=== PATIENT | female | born 1945 | race Caucasian/White ===

== ENCOUNTER 2018-07-16 17:16 | Inpatient (IN) | payer OTHER, MEDICARE ==
[~2018-07-16] VITALS: Ht 152.4 cm; Wt 86.6 kg
[~2018-07-16 17:16] MED LIST: ACET325T9 PO; CALC-112 PO; CARV25TA PO; CITA10TA8 PO; FLUT16SP2 NS; GLUC1CAP57 PO; HYDR-2145 PO; LIPITOR80 MG PO; MULT1CAP15 PO; NAPR220C4 PO; NIAC1000 PO; OMEP20TA8 PO; POTA20TA84 PO; PROP15DR2 OP; RAMI10CA34 PO; TACR100O2 TP; UBID200C7 PO; WARF-78 PO
[2018-07-16] MEDS ORDERED: IV NORMAL SALINE 1000ML BAG 1,000 ML IV ONE (17:30)
[2018-07-16] MEDS ORDERED: fentaNYL PF VIAL 100 MCG/2 ML VIAL IV ONE (17:45)
[2018-07-16 17:50] LABS: BASO # 0.1 x10^3/uL (0.0-0.2); BASO % 1 % (0-3); EOS # 0.2 x10^3/uL (0.0-0.7); EOS % 2 % (0-3); HEMATOCRIT 35.5 % (36.0-47.0); HEMOGLOBIN 11.9 g/dL (12.0-15.5); LYMPH # 2.2 x10^3/uL (1.0-4.8); LYMPH % 25 % (24-48); MEAN CORPUSCULAR HEMOGLOBIN 30 pg (25-35); MEAN CORPUSCULAR HGB CONC 33 g/dL (31-37); MEAN CORPUSCULAR VOLUME 89 fL (79-100); MONO # 0.8 x10^3/uL (0.0-1.1); MONO % 9 % (0-9); NEUT # 5.4 x10^3uL (1.8-7.7); NEUT % 63 % (31-73); PLATELET COUNT 283 x10^3/uL (140-400); RED BLOOD COUNT 3.97 x10^6/uL (3.50-5.40); RED CELL DISTRIBUTION WIDTH 13.2 % (11.5-14.5); WHITE BLOOD COUNT 8.6 x10^3/uL (4.0-11.0)
[2018-07-16 17:56] LABS: CALCIUM 9.4 mg/dL (8.5-10.1); CREATININE 1.1 mg/dL (0.6-1.0); GFR 48.8; POTASSIUM 3.3 mmol/L (3.5-5.1)
[2018-07-16 18:02] LABS: ALBUMIN 3.5 g/dL (3.4-5.0); ALBUMIN/GLOBULIN RATIO 0.9 (1.0-1.7); TOTAL BILIRUBIN 0.3 mg/dL (0.2-1.0); TOTAL PROTEIN 7.2 g/dL (6.4-8.2)
[2018-07-16] MEDS ORDERED: HYDROmorphone 2 MG/ML VIAL IV ONE (18:45)
[2018-07-16] MEDS ORDERED: ONDANSETRON PF 4 MG/2 ML VIAL. IV PRN (18:45)
[2018-07-16] MEDS ORDERED: MORPHINE SULFATE 4 MG/ML VIAL. IV PRN (18:45)
--- NOTE | 2018-07-16 19:02 | RAD ---
Pelvis and right Two View hip: Clinical History: Pain status post fall. Technique: AP view the pelvis AP and frog leg views of the right hip were obtained. Comparison: None. Findings: There is obscuration of bony detail of sacrum due to overlying bowel gas. The visualized osseous structures appear normal. The femoral acetabular relationship is normal. There is gross osteopenia which decreases sensitivity for a possible nondisplaced fracture. Impression: No acute findings. End impression 3 views right knee Portable AP, oblique and crosstable lateral views right knee There is prior right knee total arthroplasty. The femoral and tibial components are well seated. There is a comminuted impacted fracture of the distal femur just above the femoral component with mild posterior angulation and posterior displacement and mild medial displacement. There are fracture lines which enter the lateral femoral condyle. There is a large hemarthrosis. IMPRESSION: Acute medical fracture of the distal femur just above the femoral component with fracture lines entering the lateral femoral condyle. End impression 2 views right ankle: Limited portable 2 view AP and lateral views There is a avulsion from the tip of the lateral malleolus. There is moderate soft tissue swelling over the lateral malleolus. The tibiotalar relationship is normal. IMPRESSION: Avulsion from the tip of the lateral malleolus. See 3 views right knee. End impression Electronically signed by: Freddy Braga III, MD (07/16/2018 6:57 PM) [id number]
[2018-07-16] MEDS: IV NORMAL SALINE 1000ML BAG 1,000 ML IV SCH ×2 (19:12→22:05)
--- NOTE | 2018-07-16 19:19 | PDOC1 ---
History and Physical Date of Admission Date of Admission DATE: 07/16/18 TIME: 19:17 Identification/Chief Complaint Chief Complaint SEEN IN ER , 73 year old female who presents with pain in her right leg primarily above her knee and in her ankle after she fell today. She called EMS and was transported to the ED. She states that she has a history of a knee [place] [address] Amaro. She is unable to bear weight on the extremity and the injury is exquisitely painful. She denies loss of consciousness or other injury. Past Medical History Past Medical History Past Medical History Past Medical History: CAD, GERD, High Cholesterol, Hypertension, Other Additional Past Medical Histor: OSTEOARTHRITIS, SLEEP APNEA,TENDONITIS LEFT ANKLE Past Surgical History: Coronary Bypass Surgery, Hysterectomy, Knee Replacement , Tubal ligation, Other Additional Past Surgical Histo: BILAT ROTATOR CUFF, CARPEL TUNNEL Alcohol Use: Occasionally Drug Use: None family hx htn Cardiovascular: CAD, HTN, Hyperlipidemia GI: GERD Musculoskeletal: Osteoarthritis Past Surgical History Past Surgical History: CABG, Total knee replacement, Hysterectomy Family History Family History: Hypertension Social History Smoke: No ALCOHOL: none Drugs: None Current Medications Current Medications Current Medications Fentanyl Citrate (Fentanyl 2ml Vial) 75 mcg 1X ONCE IV Last administered on at 17:39; Start 07/16/18 at 17:45; Stop 07/16/18 at 17:46; Status DC Sodium Chloride 1,000 ml @ 1,000 mls/hr 1X ONCE IV Last administered on at 17:41; Start 07/16/18 at 17:30; Stop 07/16/18 at 18:29; Status DC Hydromorphone HCl (Dilaudid) 0.5 mg 1X ONCE IV Last administered on 07/16/18at 19:12; Start 07/16/18 at 18:45; Stop 07/16/18 at 18:46; Status DC Ondansetron HCl (Zofran) 4 mg PRN Q8HRS PRN IV NAUSEA/VOMITING; Start 07/16/18 at 18:45; Stop 07/17/18 at 18:44 Morphine Sulfate (Morphine Sulfate) 4 mg PRN Q2HR PRN IV PAIN, 1st CHOICE; Start 07/16/18 at 18:45; Stop 07/17/18 at 18:44 Fentanyl Citrate (Fentanyl 2ml Vial) 50 mcg PRN Q1HR PRN IV PAIN, 2nd CHOICE; Start 07/16/18 at 18:45; Stop 07/17/18 at 18:44 Sodium Chloride 1,000 ml @ 125 mls/hr Q8H IV Last administered on 07/16/18at 19 :12; Start 07/16/18 at 19:00; Stop 07/17/18 at 18:59 Active Scripts Active Reported Coumadin (Warfarin Sodium) 5 Mg Tablet 1 Tab PO 1X Last dose given: Next dose due: Systane Liquid Gel Eye Drops (Propylene Glycol/Peg 400) 15 Ml Drp.lq.gel 15 Ml OP BID Not taken while in hosp. may resume at home as directed Multivitamins (Multivitamin) 1 Each Capsule 1 Each PO DAILY Last dose given: 8:30 a.m. Next dose due: 07-27-14 8:30 a.m. Tylenol (Acetaminophen) 325 Mg Tablet 1 Tab PO PRN PRN Last dose given: 11:30 a.m. Next dose due: 3:30 p.m. if needed for pain do not exceed 4,000 mg. tylenol in 24 hour period Glucosamine Chondroitin Cap (Glucosamine/Chondroitin Sulf A) 1 Each Capsule 1 Each PO DAILY Not taken while in hosp may resume at home as directed Citracal + D Er Tablet (Calcium Carb & Cit/Vitamin D3) 1 Each Tablet.er 1 Each PO DAILY Last dose given: 8:30 a.m. Next dose due: 07-27-14 8:30 a.m. Co Q-10 (Ubidecarenone) 200 Mg Capsule 200 Mg PO DAILY Last dose given: 8:30 a.m. Next dose due: 07-27-14 8:30 a.m. Protopic (Tacrolimus) 100 Gm Oint...g. 1 Shagufta TP BID Not used while in hosp. may resume at home as directed Omeprazole 20 Mg Tablet.dr 1 Tab PO DAILY Last dose given: 7:00 a.m. Next dose due: 07-27-14 7:00 a.m. Hydrochlorothiazide Tablet (Hydrochlorothiazide) 25 Mg Tablet 1 Tab PO DAILY Last dose given: 8:30 a.m. Next dose due: 07-27-14 8:30 a.m. K-Tab ER (Potassium Chloride) 20 Meq Tablet.er 20 Meq PO DAILY Last dose given: 8:30 a.m. Next dose due: 07-27-14 8:30 a.m. Altace (Ramipril) 10 Mg Capsule 1 Cap PO DAILY Last dose given: 07-25-14 5:00 p.m. Next dose due: this evening at 5:00 p.m. Flonase (Fluticasone Propionate) 16 Gm Rosepine.susp 2 Rosepine NS BID Not taken while in hosp. May resume at home as directed Celexa (Citalopram Hydrobromide) 10 Mg Tablet 1 Tab PO HS Last dose given: 07-25-14 9:00 p.m. Next dose due: tonight Niaspan (Niacin) 1,000 Mg Tab.er.24h 1 Tab PO HS Last dose given: 07-25-14 9:00 p.m. Next dose due: tonight Lipitor (Atorvastatin Calcium) 80 Mg Tablet 1 Tab PO HS Last dose given: 07-25-14 9:00 p.m. Next dose due: tonight Coreg (Carvedilol) 25 Mg Tablet 1 Tab PO BID Last dose given: 8:30 a.m. Next dose due: tonight Allergies Allergies: Coded Allergies: celecoxib (Verified Allergy, Severe, Palpitations, 07/25/14) diphenhydramine (Unverified Allergy, Severe, Hives, 07/25/14) adhesive (Verified Allergy, Intermediate, Rash, 07/25/14) latex (Unverified Allergy, Intermediate, Itching, 07/25/14) Nitrate Analogues (Unverified Adverse Reaction, Mild, 07/25/14) SEVERE MIGRAINES Uncoded Allergies: MUSHROOM (Allergy, Severe, Anaphylaxis, 07/08/14) ROS Review of System Review of Systems Review of Systems Constitutional: Denies fever or chills [] Respiratory: Denies cough or shortness of breath [] Cardiovascular: No additional information not addressed in HPI [] GI: Denies abdominal pain, nausea, vomiting, bloody stools or diarrhea [] : Denies dysuria or hematuria [] Musculoskeletal: See history of present illness Integument: Denies rash or skin lesions [] Neurologic: Denies headache, focal weakness or sensory changes [] Endocrine: Denies polyuria or polydipsia [] 14 PT systems were reviewed and found to be within normal limits, except as documented General: No: Chills, Night Sweats, Fatigue, Malaise, Appetite, Other PSYCHOLOGICAL ROS: No: Anxiety, Behavioral Disorder, Concentration difficultie , Decreased libido, Depression, Disorientation, Hallucinations, Hostility, Irritablity, Memory difficulties, Mood Swings, Obsessive thoughts, Physical abuse, Sexual abuse, Sleep disturbances, Suicidal ideation, Other HEENT: No: Heacaches, Visual Changes, Hearing change, Nasal congestion, Nasal discharge, Oral lesions, Sinus pain, Sore Throat, Epistaxis, Sneezing, Snoring, Tinnitus, Vertigo, Vocal changes, Other ALLERGY AND IMMUNOLOGY: No: Hives, Insect Bite Sensitivity, Itchy/Watery Eyes, Nasal Congestion, Post Nasal Drip, Seasonal Allergies, Other Gastrointestinal: No Nausea, No Vomiting, No Abdominal Pain, No Diarrhea, No Constipation, No Melena, No Hematochezia, No Other Musculoskeletal: Yes Gait Disturbance, Yes Joint Pain Neurological: Yes Gait Disturbance Physical Exam Physical Exam Physical Exam Physical Exam Constitutional: Well developed, well nourished, MOD acute distress, non-toxic appearance. [] Cardiovascular:Heart rate regular rhythm, no murmur [] Lungs & Thorax: Bilateral breath sounds clear to auscultation [] Abdomen: Bowel sounds normal, soft, no tenderness, no masses, no pulsatile masses. [] Skin: Warm, dry, no erythema, no rash. [] Back: No tenderness, no CVA tenderness. [] Extremities: tenderness to right knee and ankle, no cyanosis, no clubbing, ROM decreased due to pain and deformity, moderate edema, pulses and sensation are intact distal to injuries. [] Neurologic: Alert and oriented X 3, normal motor function, normal sensory function, no focal deficits noted. [] Psychologic: Affect normal, judgement normal, mood normal. [] General: Oriented X3, Cooperative, moderate distress HEENT: Atraumatic, PERRLA, EOMI, Mucous membr. moist/pink Lungs: Clear to auscultation, Normal air movement Heart: RRR, no thrills, no gallops Breasts: Not examined Abdomen: Normal bowel sounds, Soft Rectal Exam: not examined PELVIC: Examination not indicated Extremities: No cyanosis Neuro: Normal speech, Cranial nerves 3-12 NL Psych/Mental Status: Mental status NL, Mood NL Vitals Vitals Vital Signs Date Time Temp Pulse Resp B/P (MAP) Pulse Ox O2 Delivery O2 Flow Rate FiO2 07/16/18 19:12 16 97 Room Air 07/16/18 17:21 98.2 64 160/74 (102) 98.2 Labs Labs Laboratory Tests Test 07/16/18 17:32 White Blood Count 8.6 x10^3/uL (4.0-11.0) Red Blood Count 3.97 x10^6/uL (3.50-5.40) Hemoglobin 11.9 g/dL (12.0-15.5) Hematocrit 35.5 % (36.0-47.0) Mean Corpuscular Volume 89 fL (79-100) Mean Corpuscular Hemoglobin 30 pg (25-35) Mean Corpuscular Hemoglobin Concent 33 g/dL (31-37) Red Cell Distribution Width 13.2 % (11.5-14.5) Platelet Count 283 x10^3/uL (140-400) Neutrophils (%) (Auto) 63 % (31-73) Lymphocytes (%) (Auto) 25 % (24-48) Monocytes (%) (Auto) 9 % (0-9) Eosinophils (%) (Auto) 2 % (0-3) Basophils (%) (Auto) 1 % (0-3) Neutrophils # (Auto) 5.4 x10^3uL (1.8-7.7) Lymphocytes # (Auto) 2.2 x10^3/uL (1.0-4.8) Monocytes # (Auto) 0.8 x10^3/uL (0.0-1.1) Eosinophils # (Auto) 0.2 x10^3/uL (0.0-0.7) Basophils # (Auto) 0.1 x10^3/uL (0.0-0.2) Sodium Level 132 mmol/L (136-145) Potassium Level 3.3 mmol/L (3.5-5.1) Chloride Level 97 mmol/L (98-107) Carbon Dioxide Level 30 mmol/L (21-32) Anion Gap 5 (6-14) Blood Urea Nitrogen 21 mg/dL (7-20) Creatinine 1.1 mg/dL (0.6-1.0) Estimated GFR (Cockcroft-Gault) 48.8 BUN/Creatinine Ratio 19 (6-20) Glucose Level 166 mg/dL (70-99) Calcium Level 9.4 mg/dL (8.5-10.1) Total Bilirubin 0.3 mg/dL (0.2-1.0) Aspartate Amino Transf (AST/SGOT) 27 U/L (15-37) Alanine Aminotransferase (ALT/SGPT) 46 U/L (14-59) Alkaline Phosphatase 87 U/L (46-116) Total Protein 7.2 g/dL (6.4-8.2) Albumin 3.5 g/dL (3.4-5.0) Albumin/Globulin Ratio 0.9 (1.0-1.7) Laboratory Tests Test 07/16/18 17:32 White Blood Count 8.6 x10^3/uL (4.0-11.0) Red Blood Count 3.97 x10^6/uL (3.50-5.40) Hemoglobin 11.9 g/dL (12.0-15.5) Hematocrit 35.5 % (36.0-47.0) Mean Corpuscular Volume 89 fL (79-100) Mean Corpuscular Hemoglobin 30 pg (25-35) Mean Corpuscular Hemoglobin Concent 33 g/dL (31-37) Red Cell Distribution Width 13.2 % (11.5-14.5) Platelet Count 283 x10^3/uL (140-400) Neutrophils (%) (Auto) 63 % (31-73) Lymphocytes (%) (Auto) 25 % (24-48) Monocytes (%) (Auto) 9 % (0-9) Eosinophils (%) (Auto) 2 % (0-3) Basophils (%) (Auto) 1 % (0-3) Neutrophils # (Auto) 5.4 x10^3uL (1.8-7.7) Lymphocytes # (Auto) 2.2 x10^3/uL (1.0-4.8) Monocytes # (Auto) 0.8 x10^3/uL (0.0-1.1) Eosinophils # (Auto) 0.2 x10^3/uL (0.0-0.7) Basophils # (Auto) 0.1 x10^3/uL (0.0-0.2) Sodium Level 132 mmol/L (136-145) Potassium Level 3.3 mmol/L (3.5-5.1) Chloride Level 97 mmol/L (98-107) Carbon Dioxide Level 30 mmol/L (21-32) Anion Gap 5 (6-14) Blood Urea Nitrogen 21 mg/dL (7-20) Creatinine 1.1 mg/dL (0.6-1.0) Estimated GFR (Cockcroft-Gault) 48.8 BUN/Creatinine Ratio 19 (6-20) Glucose Level 166 mg/dL (70-99) Calcium Level 9.4 mg/dL (8.5-10.1) Total Bilirubin 0.3 mg/dL (0.2-1.0) Aspartate Amino Transf (AST/SGOT) 27 U/L (15-37) Alanine Aminotransferase (ALT/SGPT) 46 U/L (14-59) Alkaline Phosphatase 87 U/L (46-116) Total Protein 7.2 g/dL (6.4-8.2) Albumin 3.5 g/dL (3.4-5.0) Albumin/Globulin Ratio 0.9 (1.0-1.7) Images Images Impression: No acute findings. End impression 3 views right knee Portable AP, oblique and crosstable lateral views right knee There is prior right knee total arthroplasty. The femoral and tibial components are well seated. There is a comminuted impacted fracture of the distal femur just above the femoral component with mild posterior angulation and posterior displacement and mild medial displacement. There are fracture lines which enter the lateral femoral condyle. There is a large hemarthrosis. IMPRESSION: Acute medical fracture of the distal femur just above the femoral component with fracture lines entering the lateral femoral condyle. End impression 2 views right ankle: Limited portable 2 view AP and lateral views There is a avulsion from the tip of the lateral malleolus. There is moderate soft tissue swelling over the lateral malleolus. The tibiotalar relationship is normal. IMPRESSION: Avulsion from the tip of the lateral malleolus. See 3 views right knee. VTE Prophylaxis Ordered VTE Prophylaxis Devices: Yes VTE Pharmacological Prophylaxi: Yes Assessment/Plan Assessment/Plan IMPRESSION: Acute medical fracture of the distal femur just above the femoral component with fracture lines entering the lateral femoral condyle. HX HYPERTENSION HYPERLIPIDEMIA HX GERD CHIARA PLAN ADMIT NPO P MN ORTHO CONSULT PAIN CONTROL IV DVT PROPHYLAXIS BP CONTROL TAMMIE RON MD Jul 16, 2018 19:19
[2018-07-16 19:40] VITALS: BP 142/73
--- NOTE | 2018-07-16 19:47 | PHYS DOC ---
Past Medical History Past Medical History: CAD, GERD, High Cholesterol, Hypertension, Other Additional Past Medical Histor: OSTEOARTHRITIS, SLEEP APNEA,TENDONITIS LEFT ANKLE Past Surgical History: Coronary Bypass Surgery, Hysterectomy, Knee Replacement , Tubal ligation, Other Additional Past Surgical Histo: BILAT ROTATOR CUFF, CARPEL TUNNEL Alcohol Use: Occasionally Drug Use: None Adult General Chief Complaint Chief Complaint: MECHANICAL FALL HPI HPI Patient is a 73 year old female who presents with pain in her right leg primarily above her knee and in her ankle after she fell today. She called EMS and was transported to the ED. She states that she has a history of a knee replacement [place] [address] Amaro. She is unable to bear weight on the extremity and the injury is exquisitely painful. She denies loss of consciousness or other injury. Review of Systems Review of Systems Constitutional: Denies fever or chills [] Respiratory: Denies cough or shortness of breath [] Cardiovascular: No additional information not addressed in HPI [] GI: Denies abdominal pain, nausea, vomiting, bloody stools or diarrhea [] : Denies dysuria or hematuria [] Musculoskeletal: See history of present illness Integument: Denies rash or skin lesions [] Neurologic: Denies headache, focal weakness or sensory changes [] Endocrine: Denies polyuria or polydipsia [] All other systems were reviewed and found to be within normal limits, except as documented in this note. Current Medications Current Medications Current Medications Medications (Trade) Dose Ordered Sig/[facility] Start Time Stop Time Status Last Admin Dose Admin Fentanyl Citrate (Fentanyl 2ml Vial) 75 mcg 1X ONCE 07/16/18 17:45 07/16/18 17:46 DC 07/16/18 17:39 75 MCG Sodium Chloride 1,000 ml @ 1,000 mls/hr 1X ONCE 07/16/18 17:30 07/16/18 18:29 DC 07/16/18 17:41 1,000 MLS/HR Allergies Allergies Allergies Coded Allergies Type Severity Reaction Last Updated Verified celecoxib Allergy Severe Palpitations 07/25/14 Yes diphenhydramine Allergy Severe Hives 07/25/14 No adhesive Allergy Intermediate Rash 07/25/14 Yes latex Allergy Intermediate Itching 07/25/14 No Nitrate Analogues Adverse Reaction Mild 07/25/14 No Physical Exam Physical Exam Constitutional: Well developed, well nourished, no acute distress, non-toxic appearance. [] Cardiovascular:Heart rate regular rhythm, no murmur [] Lungs & Thorax: Bilateral breath sounds clear to auscultation [] Abdomen: Bowel sounds normal, soft, no tenderness, no masses, no pulsatile masses. [] Skin: Warm, dry, no erythema, no rash. [] Back: No tenderness, no CVA tenderness. [] Extremities: tenderness to right knee and ankle, no cyanosis, no clubbing, ROM decreased due to pain and deformity, moderate edema, pulses and sensation are intact distal to injuries. [] Neurologic: Alert and oriented X 3, normal motor function, normal sensory function, no focal deficits noted. [] Psychologic: Affect normal, judgement normal, mood normal. [] Current Patient Data Vital Signs Vital Signs Date Time Temp Pulse Resp B/P (MAP) Pulse Ox O2 Delivery O2 Flow Rate FiO2 07/16/18 18:30 50 16 96 07/16/18 17:39 Room Air 07/16/18 17:21 98.2 160/74 (102) 98.2 Lab Values Laboratory Tests Test 07/16/18 17:32 White Blood Count 8.6 x10^3/uL (4.0-11.0) Red Blood Count 3.97 x10^6/uL (3.50-5.40) Hemoglobin 11.9 g/dL (12.0-15.5) L Hematocrit 35.5 % (36.0-47.0) L Mean Corpuscular Volume 89 fL (79-100) Mean Corpuscular Hemoglobin 30 pg (25-35) Mean Corpuscular Hemoglobin Concent 33 g/dL (31-37) Red Cell Distribution Width 13.2 % (11.5-14.5) Platelet Count 283 x10^3/uL (140-400) Neutrophils (%) (Auto) 63 % (31-73) Lymphocytes (%) (Auto) 25 % (24-48) Monocytes (%) (Auto) 9 % (0-9) Eosinophils (%) (Auto) 2 % (0-3) Basophils (%) (Auto) 1 % (0-3) Neutrophils # (Auto) 5.4 x10^3uL (1.8-7.7) Lymphocytes # (Auto) 2.2 x10^3/uL (1.0-4.8) Monocytes # (Auto) 0.8 x10^3/uL (0.0-1.1) Eosinophils # (Auto) 0.2 x10^3/uL (0.0-0.7) Basophils # (Auto) 0.1 x10^3/uL (0.0-0.2) Sodium Level 132 mmol/L (136-145) L Potassium Level 3.3 mmol/L (3.5-5.1) L Chloride Level 97 mmol/L (98-107) L Carbon Dioxide Level 30 mmol/L (21-32) Anion Gap 5 (6-14) L Blood Urea Nitrogen 21 mg/dL (7-20) H Creatinine 1.1 mg/dL (0.6-1.0) H Estimated GFR (Cockcroft-Gault) 48.8 BUN/Creatinine Ratio 19 (6-20) Glucose Level 166 mg/dL (70-99) H Calcium Level 9.4 mg/dL (8.5-10.1) Total Bilirubin 0.3 mg/dL (0.2-1.0) Aspartate Amino Transferase (AST) 27 U/L (15-37) Alanine Aminotransferase (ALT) 46 U/L (14-59) Alkaline Phosphatase 87 U/L (46-116) Total Protein 7.2 g/dL (6.4-8.2) Albumin 3.5 g/dL (3.4-5.0) Albumin/Globulin Ratio 0.9 (1.0-1.7) L Laboratory Tests 07/16/18 17:32 Laboratory Tests 07/16/18 17:32 EKG EKG [] Radiology/Procedures Radiology/Procedures [] PATIENT: AYDIN BOSS ACCOUNT: [id number] : 1945 LOCATION: [address] [place] [address] AGE: 73 SEX: F EXAM STATUS: ADM IN ORD. PHYSICIAN: KAREL BARAHONA APRN REASON: fall today PROCEDURE: HIP RIGHT 2V WITH PELVIS Pelvis and right Two View hip: Clinical History: Pain status post fall. Technique: AP view the pelvis AP and frog leg views of the right hip were obtained. Comparison: None. Findings: There is obscuration of bony detail of sacrum due to overlying bowel gas. The visualized osseous structures appear normal. The femoral acetabular relationship is normal. There is gross osteopenia which decreases sensitivity for a possible nondisplaced fracture. Impression: No acute findings. End impression 3 views right knee Portable AP, oblique and crosstable lateral views right knee There is prior right knee total arthroplasty. The femoral and tibial components are well seated. There is a comminuted impacted fracture of the distal femur just above the femoral component with mild posterior angulation and posterior displacement and mild medial displacement. There are fracture lines which enter the lateral femoral condyle. There is a large hemarthrosis. IMPRESSION: Acute medical fracture of the distal femur just above the femoral component with fracture lines entering the lateral femoral condyle. End impression 2 views right ankle: Limited portable 2 view AP and lateral views There is a avulsion from the tip of the lateral malleolus. There is moderate soft tissue swelling over the lateral malleolus. The tibiotalar relationship is normal. IMPRESSION: Avulsion from the tip of the lateral malleolus. See 3 views right knee. End impression Electronically signed by: Litzy Alvarez III, MD (07/16/2018 6:57 PM) [id number] DICTATED and SIGNED BY: LITZY ALVAREZ III, MD DATE: 07/16/181852 Course & Med Decision Making Course & Med Decision Making Pertinent Labs and Imaging studies reviewed. (See chart for details) []The patient was given fentanyl and Dilaudid in the emergency department for pain. The patient is being placed in a posterior long leg splint. Dragon Disclaimer Dragon Disclaimer This electronic medical record was generated, in whole or in part, using a voice recognition dictation system. Departure Departure Impression: Primary Impression: Femur fracture Additional Impression: Fractured lateral malleolus Disposition: 09 ADMITTED INPATIENT Admitting Physician: Richie Wells Condition: STABLE Referrals: NIDHI PIERRE MD (PCP) Attending Signature Attending Signature I have reviewed the PA/PHARMACY ANCILLARY's note and plan of care. I was available for consultation as needed during the patient's visit in the emergency department. I agree with the clinical impression, plan, and disposition. Problem Qualifiers KAREL BARAHONA APRN Jul 16, 2018 19:47 LIZANDRO WILCOX DO Jul 17, 2018 05:54
[2018-07-16] MEDS: fentaNYL PF VIAL 100 MCG/2 ML VIAL IV PRN (22:06)
[2018-07-16] MEDS ORDERED: ACETAMINOPHEN 325 MG TABLET. PO PRN (23:00)
[2018-07-16 23:06] VITALS: BP 147/71
[2018-07-17] VITALS (12 sets, daily range): BP systolic 102–171; BP diastolic 48–68
--- NOTE | 2018-07-17 02:05 | NUR ---
Received report from Edith RN, Emergency Department. Patient arrived to unit accompanied by . Patient had green bag with belongings, cell phone without ore charger. Patient currently rating pain at 4/10. Patient orientated to room, call light placed within reach and bed placed in the lowest position and locked. Marcial from Emergency Department arrived on floor to soft cast the leg and also placed mooney. Will continue to monitor the patient.
[2018-07-17] MEDS: fentaNYL PF VIAL 100 MCG/2 ML VIAL IV PRN ×4 (02:44→17:26)
[2018-07-17 03:28] LABS: CREATININE 0.7 mg/dL (0.6-1.0); GFR 82.3; POTASSIUM 3.2 mmol/L (3.5-5.1)
[2018-07-17 04:22] LABS: BASO % 0 % (0-3); EOS % 0 % (0-3); HEMATOCRIT 27.8 % (36.0-47.0); HEMOGLOBIN 9.7 g/dL (12.0-15.5); LYMPH # 1.5 x10^3/uL (1.0-4.8); LYMPH % 13 % (24-48); MEAN CORPUSCULAR HEMOGLOBIN 31 pg (25-35); MEAN CORPUSCULAR HGB CONC 35 g/dL (31-37); MEAN CORPUSCULAR VOLUME 89 fL (79-100); MONO # 0.8 x10^3/uL (0.0-1.1); MONO % 7 % (0-9); NEUT # 9.1 x10^3uL (1.8-7.7); NEUT % 80 % (31-73); PLATELET COUNT 226 x10^3/uL (140-400); RED BLOOD COUNT 3.13 x10^6/uL (3.50-5.40); RED CELL DISTRIBUTION WIDTH 13.1 % (11.5-14.5); WHITE BLOOD COUNT 11.4 x10^3/uL (4.0-11.0)
[2018-07-17] MEDS: IV NORMAL SALINE 1000ML BAG 1,000 ML IV SCH (05:34)
[2018-07-17] MEDS ORDERED: IV RINGERS,LACTATED 1000ML 1,000 ML IV SCH (07:07)
[2018-07-17] MEDS ORDERED: HYDROmorphone 2 MG/ML VIAL IV PRN (07:15)
[2018-07-17] MEDS ORDERED: LIDOCAINE 1% PF 2 ML VIAL. ID PRN (07:15)
[2018-07-17] MEDS ORDERED: fentaNYL PF VIAL 100 MCG/2 ML VIAL IV PRN ×3 (07:15→18:30)
[2018-07-17] MEDS ORDERED: PROCHLORPERAZINE 10 MG/2 ML VIAL. IV PRN (07:15)
[2018-07-17] MEDS ORDERED: MORPHINE SULFATE 4 MG/ML VIAL. IV PRN ×3 (07:15→18:30)
[2018-07-17] MEDS ORDERED: ONDANSETRON PF 4 MG/2 ML VIAL. IV PRN ×2 (07:15→18:30)
[2018-07-17] MEDS: PANTOPRAZOLE 40 MG TABLET.DR. PO SCH (08:51)
[2018-07-17] MEDS: CALCIUM CARB/VIT D3 500/200 TABLET. PO SCH ×2 (08:52→17:25)
[2018-07-17] MEDS: CARVEDILOL 12.5 MG TABLET. PO SCH ×2 (08:52→17:25)
[2018-07-17] MEDS: POTASSIUM CHLORIDE 20 MEQ TABLET.ER. PO SCH ×2 (08:53→21:02)
[2018-07-17] MEDS: FLUTICASONE 50MCG/NASAL SPRAY 16GM BOTTLE. NS SCH ×2 (08:53→21:03)
[2018-07-17] MEDS: MULTIVITAMIN with MINERAL TABLET. PO SCH (08:53)
[2018-07-17] MEDS: POLYVINYL ALCOHOL 1.4% OPHTH SOLUTION 15ML BOTTLE. OU SCH ×2 (08:53→21:03)
[2018-07-17] MEDS ORDERED: [UNRECOGNIZED DRUG - OTHER] PO SCH (09:00)
[2018-07-17] MEDS ORDERED: GLUCOSAMINE PO SCH (09:00)
[2018-07-17] MEDS: LISINOPRIL 20 MG TABLET PO SCH (09:00)
--- NOTE | 2018-07-17 10:40 | NUR ---
SW following for discharge planning. Discussed with RN, pt having surgery today. Pt is from home with . SW will continue to follow.
[2018-07-17] MEDS ORDERED: FAMOTIDINE 20 MG/2 ML VIAL ONE (12:03)
[2018-07-17] MEDS ORDERED: DEXAMETHASONE SOD PHOS 20 MG/5 ML VIAL. ONE (12:03)
[2018-07-17] MEDS ORDERED: ONDANSETRON PF 4 MG/2 ML VIAL. ONE (12:03)
[2018-07-17] MEDS ORDERED: ROCURONIUM 50 MG/5 ML VIAL. ONE (12:03)
[2018-07-17] MEDS ORDERED: SUCCINYLCHOLINE 200 MG/10 ML VIAL. ONE (12:03)
[2018-07-17] MEDS ORDERED: PROPOFOL 20 ML IV ONE (12:03)
[2018-07-17] MEDS ORDERED: LIDOCAINE 2% PF Vial for OR 5 ML VIAL. ONE (12:03)
[2018-07-17] MEDS ORDERED: fentaNYL PF VIAL 100 MCG/2 ML VIAL ONE ×2 (12:04→13:19)
[2018-07-17] MEDS ORDERED: ePHEDrine PF IN SALINE 50 MG/5 ML DISP.SYRIN IV ONE (13:32)
[2018-07-17] MEDS ORDERED: DESFLURANE > 120 MINUTES IH ONE (14:05)
[2018-07-17] MEDS ORDERED: GLYCOPYRROLATE 1 MG/5 ML VIAL. ONE (14:05)
[2018-07-17] MEDS ORDERED: NEOSTIGMINE 10 MG/10 ML VIAL. ONE (14:06)
[2018-07-17] MEDS ORDERED: WARFARIN 7.5 MG TABLET. PO ONE (16:00)
--- NOTE | 2018-07-17 18:19 | PDOC ---
PROGRESS NOTES Chief Complaint Chief Complaint Acute fracture of the distal femur just above the femoral component with fracture lines entering the lateral femoral condyle. surg today ORIF HX HYPERTENSION HYPERLIPIDEMIA HX GERD CHIARA History of Present Illness History of Present Illness surg today bowel regimen PT and OT likely snu Vitals Vitals Vital Signs Date Time Temp Pulse Resp B/P (MAP) Pulse Ox O2 Delivery O2 Flow Rate FiO2 07/17/18 17:57 Room Air 07/17/18 17:25 60 154/62 07/17/18 15:28 98 18 100 1 98.0 Physical Exam General: Oriented X3, Cooperative, No acute distress Heart: Regular rate, No murmurs Lungs: Clear Abdomen: Normal bowel sounds, Soft Extremities: No cyanosis, No edema Skin: No rashes, No breakdown Labs LABS Laboratory Tests Test 07/16/18 22:54 07/17/18 02:45 Nasal Screen MRSA (PCR) Negative (Negative) White Blood Count 11.4 x10^3/uL (4.0-11.0) Red Blood Count 3.13 x10^6/uL (3.50-5.40) Hemoglobin 9.7 g/dL (12.0-15.5) Hematocrit 27.8 % (36.0-47.0) Mean Corpuscular Volume 89 fL (79-100) Mean Corpuscular Hemoglobin 31 pg (25-35) Mean Corpuscular Hemoglobin Concent 35 g/dL (31-37) Red Cell Distribution Width 13.1 % (11.5-14.5) Platelet Count 226 x10^3/uL (140-400) Neutrophils (%) (Auto) 80 % (31-73) Lymphocytes (%) (Auto) 13 % (24-48) Monocytes (%) (Auto) 7 % (0-9) Eosinophils (%) (Auto) 0 % (0-3) Basophils (%) (Auto) 0 % (0-3) Neutrophils # (Auto) 9.1 x10^3uL (1.8-7.7) Lymphocytes # (Auto) 1.5 x10^3/uL (1.0-4.8) Monocytes # (Auto) 0.8 x10^3/uL (0.0-1.1) Eosinophils # (Auto) 0.0 x10^3/uL (0.0-0.7) Basophils # (Auto) 0.0 x10^3/uL (0.0-0.2) Sodium Level 135 mmol/L (136-145) Potassium Level 3.2 mmol/L (3.5-5.1) Chloride Level 103 mmol/L (98-107) Carbon Dioxide Level 28 mmol/L (21-32) Anion Gap 4 (6-14) Blood Urea Nitrogen 17 mg/dL (7-20) Creatinine 0.7 mg/dL (0.6-1.0) Estimated GFR (Cockcroft-Gault) 82.3 Glucose Level 119 mg/dL (70-99) Calcium Level 8.0 mg/dL (8.5-10.1) Review of Systems Review of Systems no n.v.vd Assessment and Plan Assessmemt and Plan Problems Medical Problems: (1) Femur fracture Status: Acute (2) Fractured lateral malleolus Status: Acute Comment Review of Relevant I have reviewed the following items valentina (where applicable) has been applied. Labs Laboratory Tests Test 07/16/18 17:32 07/16/18 22:54 07/17/18 02:45 White Blood Count 8.6 x10^3/uL (4.0-11.0) 11.4 x10^3/uL (4.0-11.0) Red Blood Count 3.97 x10^6/uL (3.50-5.40) 3.13 x10^6/uL (3.50-5.40) Hemoglobin 11.9 g/dL (12.0-15.5) 9.7 g/dL (12.0-15.5) Hematocrit 35.5 % (36.0-47.0) 27.8 % (36.0-47.0) Mean Corpuscular Volume 89 fL (79-100) 89 fL (79-100) Mean Corpuscular Hemoglobin 30 pg (25-35) 31 pg (25-35) Mean Corpuscular Hemoglobin Concent 33 g/dL (31-37) 35 g/dL (31-37) Red Cell Distribution Width 13.2 % (11.5-14.5) 13.1 % (11.5-14.5) Platelet Count 283 x10^3/uL (140-400) 226 x10^3/uL (140-400) Neutrophils (%) (Auto) 63 % (31-73) 80 % (31-73) Lymphocytes (%) (Auto) 25 % (24-48) 13 % (24-48) Monocytes (%) (Auto) 9 % (0-9) 7 % (0-9) Eosinophils (%) (Auto) 2 % (0-3) 0 % (0-3) Basophils (%) (Auto) 1 % (0-3) 0 % (0-3) Neutrophils # (Auto) 5.4 x10^3uL (1.8-7.7) 9.1 x10^3uL (1.8-7.7) Lymphocytes # (Auto) 2.2 x10^3/uL (1.0-4.8) 1.5 x10^3/uL (1.0-4.8) Monocytes # (Auto) 0.8 x10^3/uL (0.0-1.1) 0.8 x10^3/uL (0.0-1.1) Eosinophils # (Auto) 0.2 x10^3/uL (0.0-0.7) 0.0 x10^3/uL (0.0-0.7) Basophils # (Auto) 0.1 x10^3/uL (0.0-0.2) 0.0 x10^3/uL (0.0-0.2) Sodium Level 132 mmol/L (136-145) 135 mmol/L (136-145) Potassium Level 3.3 mmol/L (3.5-5.1) 3.2 mmol/L (3.5-5.1) Chloride Level 97 mmol/L (98-107) 103 mmol/L (98-107) Carbon Dioxide Level 30 mmol/L (21-32) 28 mmol/L (21-32) Anion Gap 5 (6-14) 4 (6-14) Blood Urea Nitrogen 21 mg/dL (7-20) 17 mg/dL (7-20) Creatinine 1.1 mg/dL (0.6-1.0) 0.7 mg/dL (0.6-1.0) Estimated GFR (Cockcroft-Gault) 48.8 82.3 BUN/Creatinine Ratio 19 (6-20) Glucose Level 166 mg/dL (70-99) 119 mg/dL (70-99) Calcium Level 9.4 mg/dL (8.5-10.1) 8.0 mg/dL (8.5-10.1) Total Bilirubin 0.3 mg/dL (0.2-1.0) Aspartate Amino Transf (AST/SGOT) 27 U/L (15-37) Alanine Aminotransferase (ALT/SGPT) 46 U/L (14-59) Alkaline Phosphatase 87 U/L (46-116) Total Protein 7.2 g/dL (6.4-8.2) Albumin 3.5 g/dL (3.4-5.0) Albumin/Globulin Ratio 0.9 (1.0-1.7) Nasal Screen MRSA (PCR) Negative (Negative) Laboratory Tests Test 07/16/18 22:54 07/17/18 02:45 Nasal Screen MRSA (PCR) Negative (Negative) White Blood Count 11.4 x10^3/uL (4.0-11.0) Red Blood Count 3.13 x10^6/uL (3.50-5.40) Hemoglobin 9.7 g/dL (12.0-15.5) Hematocrit 27.8 % (36.0-47.0) Mean Corpuscular Volume 89 fL (79-100) Mean Corpuscular Hemoglobin 31 pg (25-35) Mean Corpuscular Hemoglobin Concent 35 g/dL (31-37) Red Cell Distribution Width 13.1 % (11.5-14.5) Platelet Count 226 x10^3/uL (140-400) Neutrophils (%) (Auto) 80 % (31-73) Lymphocytes (%) (Auto) 13 % (24-48) Monocytes (%) (Auto) 7 % (0-9) Eosinophils (%) (Auto) 0 % (0-3) Basophils (%) (Auto) 0 % (0-3) Neutrophils # (Auto) 9.1 x10^3uL (1.8-7.7) Lymphocytes # (Auto) 1.5 x10^3/uL (1.0-4.8) Monocytes # (Auto) 0.8 x10^3/uL (0.0-1.1) Eosinophils # (Auto) 0.0 x10^3/uL (0.0-0.7) Basophils # (Auto) 0.0 x10^3/uL (0.0-0.2) Sodium Level 135 mmol/L (136-145) Potassium Level 3.2 mmol/L (3.5-5.1) Chloride Level 103 mmol/L (98-107) Carbon Dioxide Level 28 mmol/L (21-32) Anion Gap 4 (6-14) Blood Urea Nitrogen 17 mg/dL (7-20) Creatinine 0.7 mg/dL (0.6-1.0) Estimated GFR (Cockcroft-Gault) 82.3 Glucose Level 119 mg/dL (70-99) Calcium Level 8.0 mg/dL (8.5-10.1) Medications Current Medications Fentanyl Citrate (Fentanyl 2ml Vial) 75 mcg 1X ONCE IV Last administered on at 17:39; Start 07/16/18 at 17:45; Stop 07/16/18 at 17:46; Status DC Sodium Chloride 1,000 ml @ 1,000 mls/hr 1X ONCE IV Last administered on at 17:41; Start 07/16/18 at 17:30; Stop 07/16/18 at 18:29; Status DC Hydromorphone HCl (Dilaudid) 0.5 mg 1X ONCE IV Last administered on 07/16/18at 19:12; Start 07/16/18 at 18:45; Stop 07/16/18 at 18:46; Status DC Ondansetron HCl (Zofran) 4 mg PRN Q8HRS PRN IV NAUSEA/VOMITING; Start 07/16/18 at 18:45; Stop 07/17/18 at 18:44 Morphine Sulfate (Morphine Sulfate) 4 mg PRN Q2HR PRN IV PAIN, 1st CHOICE; Start 07/16/18 at 18:45; Stop 07/17/18 at 18:44 Fentanyl Citrate (Fentanyl 2ml Vial) 50 mcg PRN Q1HR PRN IV PAIN, 2nd CHOICE Last administered on 07/17/18at 17:26; Start 07/16/18 at 18:45; Stop 07/17/18 at 18:44 Sodium Chloride 1,000 ml @ 125 mls/hr Q8H IV Last administered on 07/17/18at 05 :34; Start 07/16/18 at 19:00; Stop 07/17/18 at 18:59 Acetaminophen (Tylenol) 325 mg PRN Q6HRS PRN PO MILD PAIN; Start 07/16/18 at 23 :00 Citalopram Hydrobromide (CeleXA) 10 mg HS PO ; Start 07/17/18 at 21:00 Fluticasone Propionate (Flonase) 2 spray BID NS Last administered on 07/17/18at 08:53; Start 07/17/18 at 09:00 Atorvastatin Calcium (Lipitor) 80 mg QHS PO ; Start 07/17/18 at 21:00 Calcium/Vitamin D (Oscal D 500mg/ 200uts) 1 tab BIDWMEALS PO Last administered on 07/17/18at 17:25; Start 07/17/18 at 08:00 Carvedilol (Coreg) 25 mg BIDWMEALS PO Last administered on 07/17/18at 17:25; Start 07/17/18 at 08:00 Non-Formulary Medication (Glucosamine/ Chondroitin Sulf A (Glucosamine Chondroitin Cap)) 1 each BID PO ; Start 07/17/18 at 09:00; Status UNV Multivitamins (Thera M Plus) 1 tab DAILY PO Last administered on 07/17/18at 08: 53; Start 07/17/18 at 09:00 Niacin (Slo-Niacin) 1,000 mg HS PO ; Start 07/17/18 at 21:00 Pantoprazole Sodium (Protonix) 40 mg DAILYAC PO Last administered on 07/17/18at 08:51; Start 07/17/18 at 07:30 Potassium Chloride (Klor-Con) 20 meq BID PO Last administered on 07/17/18at 08: 53; Start 07/17/18 at 09:00 Artificial Tears (Artificial Tears) 1 drop BID OU Last administered on at 08:53; Start 07/17/18 at 09:00 Lisinopril (Prinivil) 20 mg DAILY PO ; Start 07/17/18 at 09:00 Ondansetron HCl (Zofran) 4 mg PRN Q6HRS PRN IV NAUSEA/VOMITING; Start 07/17/18 at 07:15; Stop 07/18/18 at 07:14 Fentanyl Citrate (Fentanyl 2ml Vial) 25 mcg PRN Q5MIN PRN IV MILD PAIN Last administered on 07/17/18at 15:22; Start 07/17/18 at 07:15; Stop 07/18/18 at 07:14 Fentanyl Citrate (Fentanyl 2ml Vial) 50 mcg PRN Q5MIN PRN IV MODERATE TO SEVERE PAIN; Start 07/17/18 at 07:15; Stop 07/18/18 at 07:14 Morphine Sulfate (Morphine Sulfate) 1 mg PRN Q10MIN PRN IV SEVERE PAIN; Start 07/17/18 at 07:15; Stop 07/18/18 at 07:14 Ringer's Solution 1,000 ml @ 30 mls/hr Q24H IV ; Start 07/17/18 at 07:07; Stop 07/17/18 at 19:06 Lidocaine HCl (Xylocaine-Mpf 1% 2ml Vial) 2 ml 1X PRN PRN ID IV START; Start at 07:15; Stop 07/18/18 at 07:14 Hydromorphone HCl (Dilaudid) 0.5 mg PRN Q10MIN PRN IV SEV PAIN, Second choice; Start 07/17/18 at 07:15; Stop 07/18/18 at 07:14 Prochlorperazine Edisylate (Compazine) 5 mg PACU PRN PRN IV NAUSEA, MRX1; Start 07/17/18 at 07:15; Stop 07/18/18 at 07:14 Propofol 20 ml @ As Directed STK-MED ONCE IV ; Start 07/17/18 at 12:03; Stop at 12:05; Status DC Dexamethasone Sodium Phosphate (Decadron) 20 mg STK-MED ONCE .ROUTE ; Start at 12:03; Stop 07/17/18 at 12:05; Status DC Famotidine (Pepcid Vial) 20 mg STK-MED ONCE .ROUTE ; Start 07/17/18 at 12:03; Stop 07/17/18 at 12:05; Status DC Lidocaine HCl (Lidocaine Pf 2% Vial) 5 ml STK-MED ONCE .ROUTE ; Start 07/17/18 at 12:03; Stop 07/17/18 at 12:05; Status DC Ondansetron HCl (Zofran) 4 mg STK-MED ONCE .ROUTE ; Start 07/17/18 at 12:03; Stop 07/17/18 at 12:05; Status DC Succinylcholine Chloride (Anectine) 200 mg STK-MED ONCE .ROUTE ; Start 07/17/18 at 12:03; Stop 07/17/18 at 12:06; Status DC Rocuronium [place] (Zemuron) 50 mg STK-MED ONCE .ROUTE ; Start 07/17/18 at 12:03 ; Stop 07/17/18 at 12:06; Status DC Fentanyl Citrate (Fentanyl 2ml Vial) 100 mcg STK-MED ONCE .ROUTE ; Start at 12:04; Stop 07/17/18 at 12:06; Status DC Cefazolin Sodium/ Dextrose 50 ml @ As Directed STK-MED ONCE IV ; Start 07/17/18 at 12:26; Stop 07/17/18 at 12:28; Status DC Fentanyl Citrate (Fentanyl 2ml Vial) 100 mcg STK-MED ONCE .ROUTE ; Start at 13:19; Stop 07/17/18 at 13:21; Status DC Ephedrine Sulfate (ePHEDrine PF IN SALINE SYRINGE) 50 mg STK-MED ONCE IV ; Start 07/17/18 at 13:32; Stop 07/17/18 at 13:34; Status DC Desflurane (Suprane) 90 ml STK-MED ONCE IH ; Start 07/17/18 at 14:05; Stop 07/17 at 14:07; Status DC Glycopyrrolate (Robinul) 1 mg STK-MED ONCE .ROUTE ; Start 07/17/18 at 14:05; Stop 07/17/18 at 14:07; Status DC Neostigmine Methylsulfate (Bloxiverz) 10 mg STK-MED ONCE .ROUTE ; Start at 14:06; Stop 07/17/18 at 14:07; Status DC Active Scripts Active Reported Systane Liquid Gel Eye Drops (Propylene Glycol/Peg 400) 15 Ml Drp.lq.gel 15 Ml OP BID Not taken while in hosp. may resume at home as directed Multivitamins (Multivitamin) 1 Each Capsule 1 Each PO DAILY Last dose given: 8:30 a.m. Next dose due: 07-27-14 8:30 a.m. Tylenol (Acetaminophen) 325 Mg Tablet 1 Tab PO PRN PRN Last dose given: 11:30 a.m. Next dose due: 3:30 p.m. if needed for pain do not exceed 4,000 mg. tylenol in 24 hour period Glucosamine Chondroitin Cap (Glucosamine/Chondroitin Sulf A) 1 Each Capsule 1 Each PO BID Not taken while in hosp may resume at home as directed Citracal + D Er Tablet (Calcium Carb & Cit/Vitamin D3) 1 Each Tablet.er 1 Each PO BID Last dose given: 8:30 a.m. Next dose due: 07-27-14 8:30 a.m. Co Q-10 (Ubidecarenone) 200 Mg Capsule 200 Mg PO DAILY Last dose given: 8:30 a.m. Next dose due: 07-27-14 8:30 a.m. Omeprazole 20 Mg Tablet.dr 1 Tab PO DAILY Last dose given: 7:00 a.m. Next dose due: 07-27-14 7:00 a.m. K-Tab ER (Potassium Chloride) 20 Meq Tablet.er 20 Meq PO BID Last dose given: 8:30 a.m. Next dose due: 07-27-14 8:30 a.m. Altace (Ramipril) 10 Mg Capsule 1 Cap PO DAILY Last dose given: 07-25-14 5:00 p.m. Next dose due: this evening at 5:00 p.m. Flonase (Fluticasone Propionate) 16 Gm [place].susp 2 [place] NS BID Not taken while in hosp. May resume at home as directed Celexa (Citalopram Hydrobromide) 10 Mg Tablet 1 Tab PO HS Last dose given: 07-25-14 9:00 p.m. Next dose due: tonight Niaspan (Niacin) 1,000 Mg Tab.er.24h 1 Tab PO HS Last dose given: 07-25-14 9:00 p.m. Next dose due: tonight Lipitor (Atorvastatin Calcium) 80 Mg Tablet 1 Tab PO HS Last dose given: 07-25-14 9:00 p.m. Next dose due: tonight Coreg (Carvedilol) 25 Mg Tablet 1 Tab PO BID Last dose given: 8:30 a.m. Next dose due: tonight Vitals/I & O Vital Sign - Last 24 Hours 07/16/18 07/16/18 07/16/18 07/16/18 18:30 19:12 19:30 19:40 Temp 99.5 99.5 Pulse 50 50 69 Resp 16 16 17 18 B/P (MAP) 142/73 (96) Pulse Ox 96 97 97 98 O2 Delivery Room Air Room Air 07/16/18 07/16/18 07/16/18 07/17/18 22:06 23:06 23:46 02:44 Temp 98.4 98.4 Pulse 73 Resp 16 B/P (MAP) 147/71 (96) Pulse Ox 98 96 96 O2 Delivery Room Air Room Air Room Air Room Air 07/17/18 07/17/18 07/17/18 07/17/18 02:59 05:30 06:00 07:00 Temp 98.6 98.3 98.6 98.3 Pulse 80 73 Resp 16 16 B/P (MAP) 155/62 (93) 153/65 (94) Pulse Ox 95 95 95 98 O2 Delivery Room Air Room Air Room Air 07/17/18 07/17/18 07/17/18 07/17/18 08:00 08:52 08:56 11:00 Temp 98.1 98.1 Pulse 73 65 Resp 16 B/P (MAP) 153/65 171/59 (96) Pulse Ox 99 O2 Delivery Room Air Room Air Room Air 07/17/18 07/17/18 07/17/18 07/17/18 11:15 14:43 14:56 14:58 Temp 98.1 99.3 98.1 99.3 Pulse 75 68 64 Resp 17 B/P (MAP) 197/81 106/31 129/43 Pulse Ox 96 100 100 O2 Delivery Room Air Simple Mask Mask Simple Mask O2 Flow Rate 9 9 6 07/17/18 07/17/18 07/17/18 07/17/18 15:13 15:22 15:28 15:52 Temp 98 98.0 Pulse 61 60 Resp 19 12 18 B/P (MAP) 139/59 154/62 Pulse Ox 96 96 100 O2 Delivery Nasal Cannula Nasal Cannula Nasal Cannula Room Air O2 Flow Rate 1 1.0 1 07/17/18 07/17/18 07/17/18 17:25 17:26 17:57 Pulse 60 B/P (MAP) 154/62 O2 Delivery Room Air Room Air Intake and Output 07/16/18 07/16/1807/17/19 15:01 23:01 07:01 Intake Total 1000 ml 60 ml Output Total 1250 ml Balance 1000 ml -1190 ml JOYA LINDSAY MD Jul 17, 2018 18:19
--- NOTE | 2018-07-17 18:22 | PDOC4 ---
Operative Note Operative Note Date of surgery: 07/17/2018 Preoperative diagnosis: Displaced periprosthetic distal femur fracture above well fixed total knee arthroplasty Postoperative diagnosis: Same Operative procedure: Operative reduction internal fixation left periprosthetic distal femur fracture with locking plate and screw fixation Surgeon: Afsaneh Assist: Radha Anesthesia: Gen. Estimated blood loss: 200 mL Complications: None Operative indications: Please see my consultation note dated today for detailed documentation of her periprosthetic distal femur fracture that occurred in a fall last evening. She underwent medical evaluation and I gone over with her risks benefits postoperative course as detailed in my preoperative consultation covering with her the possibility of infection nonhealing extended period of nonweightbearing required. All her questions were answered she wishes to proceed with surgical evaluation and treatment Operative text: Patient was identified procedure verified patient placed in the supine position on the operating table. After adequate amounts of general anesthesia were administered the right lower extremity was prepped and draped in standard sterile fashion. After timeout was performed patient procedure identified and verified and incision was made over the lateral aspect of the distal femur iliotibial band was divided in line and subperiosteal dissection was carried out to the distal femur and fracture site. Fracture was provisionally reduced and a 9 hole [place]ad[place] distal femoral locking plate was placed on the minimally invasive jig and a para-articular reduction forcep was placed over the plate to obtain near anatomic reduction of the fracture site good alignment of the total knee prosthesis was noted and a nonlocking screw was placed through the femoral condyles initially. Shaft fixation was then obtained and subsequent combination of locking and nonlocking screws was placed in the distal holes with excellent fixation noted under AP and lateral fluoroscopic views. Shaft fixation was then carried out percutaneously through additional small stab incisions and excellent alignment was noted under multiple fluoroscopic views verifying adequate hardware placement. Knee joint itself was noted to be stable and had good patellofemoral tracking thorough irrigation carried out normal saline solution closure accomplished with #1 PDS strata fix suture subcutaneous closure with buried Vicryl suture and skin closure with emily sterile soft dressings were applied patient was returned recovery room in stable condition having tolerated procedure well ZAK CASTRO MD Jul 17, 2018 18:22
[2018-07-17] MEDS ORDERED: DEXTROSE 50% 25 GM / 50ML DISP.SYRIN. IV PRN (18:30)
[2018-07-17] MEDS ORDERED: oxyCODONE IR 5 MG TABLET PO PRN (18:30)
[2018-07-17] MEDS ORDERED: HYDROcodone/APAP 7.5/325MG 1 TAB TABLET PO PRN (18:30)
[2018-07-17] MEDS ORDERED: POLYETHYLENE GLYCOL 3350 17 GM PACKET. PO PRN (18:30)
[2018-07-17 19:12] LABS: PROTHROMBIN TIME PATIENT 15.1 SEC (11.7-14.0)
[2018-07-17] MEDS ORDERED: WARFARIN 5 MG TABLET. PO ONE (19:21)
[2018-07-17] MEDS ORDERED: NIACIN ER 500 MG TABLET.ER PO ONE (21:00)
[2018-07-17] MEDS: NIACIN ER 500 MG TABLET.ER PO SCH (21:02)
[2018-07-17] MEDS: ATORVASTATIN CALCIUM 40 MG TABLET. PO SCH (21:02)
[2018-07-17] MEDS: CITALOPRAM 10 MG TABLET. PO SCH (21:03)
--- NOTE | 2018-07-17 21:30 | CONS ---
DATE OF CONSULTATION: 07/17/2018 REQUESTING PHYSICIAN: Dr. Mcdermott. REASON FOR CONSULTATION: Right periprosthetic distal femur fracture. HISTORY OF PRESENT ILLNESS: The patient is a 73-year-old female who had a total knee arthroplasty back [place] [address] Amaro, who had the sudden onset of pain, inability to bear weight after a fall where she landed on her right leg, had deformity around the knee, pain around the ankle as well and now complains of a bit of pain in the right hip area also. She has severe pain with any movement of the right lower extremity. She denies any head injury, loss of consciousness, chest pain, shortness of breath. She does have a history of heart bypass surgery many years ago and no symptoms since. PAST MEDICAL HISTORY: Significant for heart disease, reflux, hypertension, hypercholesterolemia, arthritis, sleep apnea and some recent tendinitis of her left ankle. PAST SURGICAL HISTORY: Previous coronary bypass surgery, I think, about 18 years ago, hysterectomy, right total knee arthroplasty, tubal ligation, rotator cuff surgery bilaterally as well as carpal tunnel surgery. FAMILY HISTORY: Hypertension. SOCIAL HISTORY: Denies smoking, alcohol or drug use. Previously independently ambulatory, lives with her who is present with her today. MEDICATIONS: List is reviewed. ALLERGIES: INCLUDE CELEBREX, BENADRYL AND ANY TYPE OF ADHESIVE TAPE AND NITRATES WELL FOOD ALLERGY TO MUSHROOMS. REVIEW OF SYSTEMS: Again, denies any chest pain, shortness of breath, focal weakness, numbness, tingling. Severe pain on any right lower extremity movement, pain over the knee and ankle more so than the right hip. She denies any headache, visual changes, change in bowel or bladder function, neck or back pain or other joint pain. PHYSICAL EXAMINATION: GENERAL: A pleasant, cooperative 73-year-old female, alert and oriented, in no acute distress. EXTREMITIES: Examination of lower extremities, she is tender over the tip of her distal fibula. Ankle joint is stable. She is able to wiggle up and down. She is stable to drawer testing. Knee joint has obvious deformity and gross instability with pain on any movement. No tenderness on palpation over the hip itself or over the trochanteric bursa. Normal examination of the contralateral left hip, knee and ankle. She has good range of motion and stability of bilateral shoulder, elbow and wrist as well. She has well-healed incision from previous right total knee arthroplasty. IMAGING: X-rays show a periprosthetic distal femur fracture that is comminuted and displaced. The total knee arthroplasty seems to have good fixation. X-rays of the right ankle show slight ligamentous avulsion, tiny fragment from the distal fibula, indicative of an ankle sprain. Right hip films are negative for any fracture or bony abnormality. IMPRESSION: 1. Right knee periprosthetic femur fracture. 2. Right ankle sprain with distal fibular small avulsion fragment. TREATMENT PLAN: I told her that the knee would require fixation of distal femur plate and screws. This would likely require an extended period of nonweightbearing, probably about 2 months depending on healing. She can use the knee and keep it limber for motion in the interim. We would also treat the right ankle avulsion fracture as an ankle sprain as that is the primary mode of injury. We went over risks, benefits, postoperative course of surgery including bleeding, infection, nerve or blood vessel damage, nonhealing, continued pain, medical or other anesthetic complications among others. She wishes to proceed with surgical evaluation and treatment, which will occur today. ZAK CASTRO MD DR: RADAMES/margot JOB#: [id number] / [id number]
[2018-07-17 22:50] LABS: BILIRUBIN,URINE NEGATIVE (NEG); CLARITY,URINE CLEAR; COLOR,URINE YELLOW; NITRITE,URINE NEGATIVE (NEG); PROTEIN,URINE NEGATIVE (NEG-TRACE); UROBILINOGEN,URINE 0.2 mg/dL (0.2 mg/dL)
[2018-07-17 22:55] LABS: BACTERIA,URINE 0 /HPF (0-FEW); SQUAMOUS EPITHELIAL CELL,UR FEW /LPF
[2018-07-18 03:00] VITALS: BP 133/61
[2018-07-18] MEDS: HYDROcodone/APAP 7.5/325MG 1 TAB TABLET PO PRN ×3 (03:34→21:11)
[2018-07-18] MEDS ORDERED: MAGNESIUM HYDROXIDE 2,400 MG/30 ML ORAL.SUSP. PO PRN (06:00)
[2018-07-18] MEDS: PANTOPRAZOLE 40 MG TABLET.DR. PO SCH (06:22)
[2018-07-18 07:00] VITALS: BP 115/47
[2018-07-18] MEDS: CALCIUM CARB/VIT D3 500/200 TABLET. PO SCH ×2 (08:02→17:17)
[2018-07-18 08:23] LABS: HEMATOCRIT 23.1 % (36.0-47.0)
[2018-07-18] MEDS: DOCUSATE SODIUM 100 MG CAPSULE. PO SCH (09:00)
[2018-07-18] MEDS: POLYETHYLENE GLYCOL 3350 17 GM PACKET. PO SCH (09:00)
[2018-07-18] MEDS: LISINOPRIL 20 MG TABLET PO SCH (09:00)
[2018-07-18] MEDS: POTASSIUM CHLORIDE 20 MEQ TABLET.ER. PO SCH ×2 (09:16→21:08)
[2018-07-18] MEDS: SENNOSIDES/DOCUSATE 8.6/50MG TABLET. PO SCH (09:16)
[2018-07-18] MEDS: CARVEDILOL 12.5 MG TABLET. PO SCH ×2 (09:17→17:16)
[2018-07-18] MEDS: MULTIVITAMIN with MINERAL TABLET. PO SCH (09:17)
[2018-07-18 11:00] VITALS: BP 115/46
--- NOTE | 2018-07-18 11:46 | PDOC ---
PROGRESS NOTES Chief Complaint Chief Complaint Acute fracture of the distal femur just above the femoral component with fracture lines entering the lateral femoral condyle. surg today ORIF HX HYPERTENSION HYPERLIPIDEMIA HX GERD CHIARA History of Present Illness History of Present Illness POD 1 doing well, up to chair with some difficulty, would like to DC to SNU to Deputy bowel regimen PT and OT likely snu Vitals Vitals Vital Signs Date Time Temp Pulse Resp B/P (MAP) Pulse Ox O2 Delivery O2 Flow Rate FiO2 07/18/18 11:00 98.9 66 18 115/46 (69) 98 Room Air 98.9 07/18/18 04:34 1.0 Physical Exam General: Oriented X3, Cooperative, No acute distress Heart: Regular rate, No murmurs Lungs: Clear Abdomen: Normal bowel sounds, Soft Extremities: No cyanosis, No edema Skin: No rashes, No breakdown Labs LABS Laboratory Tests Test 07/17/18 18:55 07/17/18 22:40 07/18/18 07:00 Prothrombin Time 15.1 SEC (11.7-14.0) Prothromb Time International Ratio 1.2 (0.8-1.1) Urine Collection Type Unknown Urine Color Yellow Urine Clarity Clear Urine pH 6.0 Urine Specific [place] 1.015 Urine Protein Negative mg/dL (NEG-TRACE) Urine Glucose (UA) Negative mg/dL (NEG) Urine Ketones (Stick) Negative mg/dL (NEG) Urine Blood Negative (NEG) Urine Nitrite Negative (NEG) Urine Bilirubin Negative (NEG) Urine Urobilinogen Dipstick 0.2 mg/dL (0.2 mg/dL) Urine Leukocyte Esterase Negative (NEG) Urine RBC 1-2 /HPF (0-2) Urine WBC 1-4 /HPF (0-4) Urine Squamous Epithelial Cells Few /LPF Urine Bacteria 0 /HPF (0-FEW) Urine Mucus Slight /LPF Hemoglobin 8.0 g/dL (12.0-15.5) Hematocrit 23.1 % (36.0-47.0) Mean Corpuscular Hemoglobin Concent 34 g/dL (31-37) Review of Systems Review of Systems no nv..d + weakness Assessment and Plan Assessmemt and Plan Problems Medical Problems: (1) Femur fracture Status: Acute (2) Fractured lateral malleolus Status: Acute Comment Review of Relevant I have reviewed the following items valentina (where applicable) has been applied. Labs Laboratory Tests Test 07/16/18 17:32 07/16/18 22:54 07/17/18 02:45 07/17/18 18:55 White Blood Count 8.6 x10^3/uL (4.0-11.0) 11.4 x10^3/uL (4.0-11.0) Red Blood Count 3.97 x10^6/uL (3.50-5.40) 3.13 x10^6/uL (3.50-5.40) Hemoglobin 11.9 g/dL (12.0-15.5) 9.7 g/dL (12.0-15.5) Hematocrit 35.5 % (36.0-47.0) 27.8 % (36.0-47.0) Mean Corpuscular Volume 89 fL (79-100) 89 fL (79-100) Mean Corpuscular Hemoglobin 30 pg (25-35) 31 pg (25-35) Mean Corpuscular Hemoglobin Concent 33 g/dL (31-37) 35 g/dL (31-37) Red Cell Distribution Width 13.2 % (11.5-14.5) 13.1 % (11.5-14.5) Platelet Count 283 x10^3/uL (140-400) 226 x10^3/uL (140-400) Neutrophils (%) (Auto) 63 % (31-73) 80 % (31-73) Lymphocytes (%) (Auto) 25 % (24-48) 13 % (24-48) Monocytes (%) (Auto) 9 % (0-9) 7 % (0-9) Eosinophils (%) (Auto) 2 % (0-3) 0 % (0-3) Basophils (%) (Auto) 1 % (0-3) 0 % (0-3) Neutrophils # (Auto) 5.4 x10^3uL (1.8-7.7) 9.1 x10^3uL (1.8-7.7) Lymphocytes # (Auto) 2.2 x10^3/uL (1.0-4.8) 1.5 x10^3/uL (1.0-4.8) Monocytes # (Auto) 0.8 x10^3/uL (0.0-1.1) 0.8 x10^3/uL (0.0-1.1) Eosinophils # (Auto) 0.2 x10^3/uL (0.0-0.7) 0.0 x10^3/uL (0.0-0.7) Basophils # (Auto) 0.1 x10^3/uL (0.0-0.2) 0.0 x10^3/uL (0.0-0.2) Sodium Level 132 mmol/L (136-145) 135 mmol/L (136-145) Potassium Level 3.3 mmol/L (3.5-5.1) 3.2 mmol/L (3.5-5.1) Chloride Level 97 mmol/L (98-107) 103 mmol/L (98-107) Carbon Dioxide Level 30 mmol/L (21-32) 28 mmol/L (21-32) Anion Gap 5 (6-14) 4 (6-14) Blood Urea Nitrogen 21 mg/dL (7-20) 17 mg/dL (7-20) Creatinine 1.1 mg/dL (0.6-1.0) 0.7 mg/dL (0.6-1.0) Estimated GFR (Cockcroft-Gault) 48.8 82.3 BUN/Creatinine Ratio 19 (6-20) Glucose Level 166 mg/dL (70-99) 119 mg/dL (70-99) Calcium Level 9.4 mg/dL (8.5-10.1) 8.0 mg/dL (8.5-10.1) Total Bilirubin 0.3 mg/dL (0.2-1.0) Aspartate Amino Transf (AST/SGOT) 27 U/L (15-37) Alanine Aminotransferase (ALT/SGPT) 46 U/L (14-59) Alkaline Phosphatase 87 U/L (46-116) Total Protein 7.2 g/dL (6.4-8.2) Albumin 3.5 g/dL (3.4-5.0) Albumin/Globulin Ratio 0.9 (1.0-1.7) Nasal Screen MRSA (PCR) Negative (Negative) Prothrombin Time 15.1 SEC (11.7-14.0) Prothromb Time International Ratio 1.2 (0.8-1.1) Test 07/17/18 22:40 07/18/18 07:00 Urine Collection Type Unknown Urine Color Yellow Urine Clarity Clear Urine pH 6.0 Urine Specific [place] 1.015 Urine Protein Negative mg/dL (NEG-TRACE) Urine Glucose (UA) Negative mg/dL (NEG) Urine Ketones (Stick) Negative mg/dL (NEG) Urine Blood Negative (NEG) Urine Nitrite Negative (NEG) Urine Bilirubin Negative (NEG) Urine Urobilinogen Dipstick 0.2 mg/dL (0.2 mg/dL) Urine Leukocyte Esterase Negative (NEG) Urine RBC 1-2 /HPF (0-2) Urine WBC 1-4 /HPF (0-4) Urine Squamous Epithelial Cells Few /LPF Urine Bacteria 0 /HPF (0-FEW) Urine Mucus Slight /LPF Hemoglobin 8.0 g/dL (12.0-15.5) Hematocrit 23.1 % (36.0-47.0) Mean Corpuscular Hemoglobin Concent 34 g/dL (31-37) Laboratory Tests Test 07/17/18 18:55 07/17/18 22:40 07/18/18 07:00 Prothrombin Time 15.1 SEC (11.7-14.0) Prothromb Time International Ratio 1.2 (0.8-1.1) Urine Collection Type Unknown Urine Color Yellow Urine Clarity Clear Urine pH 6.0 Urine Specific [place] 1.015 Urine Protein Negative mg/dL (NEG-TRACE) Urine Glucose (UA) Negative mg/dL (NEG) Urine Ketones (Stick) Negative mg/dL (NEG) Urine Blood Negative (NEG) Urine Nitrite Negative (NEG) Urine Bilirubin Negative (NEG) Urine Urobilinogen Dipstick 0.2 mg/dL (0.2 mg/dL) Urine Leukocyte Esterase Negative (NEG) Urine RBC 1-2 /HPF (0-2) Urine WBC 1-4 /HPF (0-4) Urine Squamous Epithelial Cells Few /LPF Urine Bacteria 0 /HPF (0-FEW) Urine Mucus Slight /LPF Hemoglobin 8.0 g/dL (12.0-15.5) Hematocrit 23.1 % (36.0-47.0) Mean Corpuscular Hemoglobin Concent 34 g/dL (31-37) Medications Current Medications Fentanyl Citrate (Fentanyl 2ml Vial) 75 mcg 1X ONCE IV Last administered on at 17:39; Start 1/20/19 at 17:45; Stop 07/16/18 at 17:46; Status DC Sodium Chloride 1,000 ml @ 1,000 mls/hr 1X ONCE IV Last administered on at 17:41; Start 07/16/18 at 17:30; Stop 07/16/18 at 18:29; Status DC Hydromorphone HCl (Dilaudid) 0.5 mg 1X ONCE IV Last administered on 07/16/18at 19:12; Start 07/16/18 at 18:45; Stop 07/16/18 at 18:46; Status DC Ondansetron HCl (Zofran) 4 mg PRN Q8HRS PRN IV NAUSEA/VOMITING; Start 07/16/18 at 18:45; Stop 07/17/18 at 18:32; Status DC Morphine Sulfate (Morphine Sulfate) 4 mg PRN Q2HR PRN IV PAIN, 1st CHOICE; Start 07/16/18 at 18:45; Stop 07/17/18 at 18:32; Status DC Fentanyl Citrate (Fentanyl 2ml Vial) 50 mcg PRN Q1HR PRN IV PAIN, 2nd CHOICE Last administered on 07/17/18at 17:26; Start 07/16/18 at 18:45; Stop 07/17/18 at 18:31; Status DC Sodium Chloride 1,000 ml @ 125 mls/hr Q8H IV Last administered on 07/17/18at 05 :34; Start 07/16/18 at 19:00; Stop 07/17/18 at 18:59; Status DC Acetaminophen (Tylenol) 325 mg PRN Q6HRS PRN PO MILD PAIN; Start 07/16/18 at 23 :00 Citalopram Hydrobromide (CeleXA) 10 mg HS PO Last administered on 07/17/18at 21: 03; Start 07/17/18 at 21:00 Fluticasone Propionate (Flonase) 2 spray BID NS Last administered on 07/17/18at 21:03; Start 07/17/18 at 09:00 Atorvastatin Calcium (Lipitor) 80 mg QHS PO Last administered on 07/17/18at 21: 02; Start 07/17/18 at 21:00 Calcium/Vitamin D (Oscal D 500mg/ 200uts) 1 tab BIDWMEALS PO Last administered on 07/18/18at 08:02; Start 07/17/18 at 08:00 Carvedilol (Coreg) 25 mg BIDWMEALS PO Last administered on 07/18/18at 09:17; Start 07/17/18 at 08:00 Non-Formulary Medication (Glucosamine/ Chondroitin Sulf A (Glucosamine Chondroitin Cap)) 1 each BID PO ; Start 07/17/18 at 09:00; Status UNV Multivitamins (Thera M Plus) 1 tab DAILY PO Last administered on 07/18/18at 09: 17; Start 07/17/18 at 09:00 Niacin (Slo-Niacin) 1,000 mg HS PO Last administered on 07/17/18at 21:02; Start 07/17/18 at 21:00 Pantoprazole Sodium (Protonix) 40 mg DAILYAC PO Last administered on 07/18/18at 06:22; Start 07/17/18 at 07:30 Potassium Chloride (Klor-Con) 20 meq BID PO Last administered on 07/18/18at 09: 16; Start 07/17/18 at 09:00 Artificial Tears (Artificial Tears) 1 drop BID OU Last administered on at 21:03; Start 07/17/18 at 09:00 Lisinopril (Prinivil) 20 mg DAILY PO ; Start 07/17/18 at 09:00 Ondansetron HCl (Zofran) 4 mg PRN Q6HRS PRN IV NAUSEA/VOMITING; Start 07/17/18 at 07:15; Stop 07/18/18 at 07:14; Status DC Fentanyl Citrate (Fentanyl 2ml Vial) 25 mcg PRN Q5MIN PRN IV MILD PAIN Last administered on 07/17/18at 15:22; Start 07/17/18 at 07:15; Stop 07/18/18 at 07:14 ; Status DC Fentanyl Citrate (Fentanyl 2ml Vial) 50 mcg PRN Q5MIN PRN IV MODERATE TO SEVERE PAIN; Start 07/17/18 at 07:15; Stop 07/18/18 at 07:14; Status DC Morphine Sulfate (Morphine Sulfate) 1 mg PRN Q10MIN PRN IV SEVERE PAIN; Start 07/17/18 at 07:15; Stop 07/17/18 at 18:32; Status DC Ringer's Solution 1,000 ml @ 30 mls/hr Q24H IV ; Start 07/17/18 at 07:07; Stop 07/17/18 at 19:06; Status DC Lidocaine HCl (Xylocaine-Mpf 1% 2ml Vial) 2 ml 1X PRN PRN ID IV START; Start at 07:15; Stop 07/18/18 at 07:14; Status DC Hydromorphone HCl (Dilaudid) 0.5 mg PRN Q10MIN PRN IV SEV PAIN, Second choice; Start 07/17/18 at 07:15; Stop 07/18/18 at 07:14; Status DC Prochlorperazine Edisylate (Compazine) 5 mg PACU PRN PRN IV NAUSEA, MRX1; Start 07/17/18 at 07:15; Stop 07/18/18 at 07:14; Status DC Propofol 20 ml @ As Directed STK-MED ONCE IV ; Start 07/17/18 at 12:03; Stop at 12:05; Status DC Dexamethasone Sodium Phosphate (Decadron) 20 mg STK-MED ONCE .ROUTE ; Start at 12:03; Stop 07/17/18 at 12:05; Status DC Famotidine (Pepcid Vial) 20 mg STK-MED ONCE .ROUTE ; Start 07/17/18 at 12:03; Stop 07/17/18 at 12:05; Status DC Lidocaine HCl (Lidocaine Pf 2% Vial) 5 ml STK-MED ONCE .ROUTE ; Start 07/17/18 at 12:03; Stop 07/17/18 at 12:05; Status DC Ondansetron HCl (Zofran) 4 mg STK-MED ONCE .ROUTE ; Start 07/17/18 at 12:03; Stop 07/17/18 at 12:05; Status DC Succinylcholine Chloride (Anectine) 200 mg STK-MED ONCE .ROUTE ; Start 07/17/18 at 12:03; Stop 07/17/18 at 12:06; Status DC Rocuronium [place] (Zemuron) 50 mg STK-MED ONCE .ROUTE ; Start 07/17/18 at 12:03 ; Stop 07/17/18 at 12:06; Status DC Fentanyl Citrate (Fentanyl 2ml Vial) 100 mcg STK-MED ONCE .ROUTE ; Start at 12:04; Stop 07/17/18 at 12:06; Status DC Cefazolin Sodium/ Dextrose 50 ml @ As Directed STK-MED ONCE IV ; Start 07/17/18 at 12:26; Stop 07/17/18 at 12:28; Status DC Fentanyl Citrate (Fentanyl 2ml Vial) 100 mcg STK-MED ONCE .ROUTE ; Start at 13:19; Stop 07/17/18 at 13:21; Status DC Ephedrine Sulfate (ePHEDrine PF IN SALINE SYRINGE) 50 mg STK-MED ONCE IV ; Start 07/17/18 at 13:32; Stop 07/17/18 at 13:34; Status DC Desflurane (Suprane) 90 ml STK-MED ONCE IH ; Start 07/17/18 at 14:05; Stop 07/17 at 14:07; Status DC Glycopyrrolate (Robinul) 1 mg STK-MED ONCE .ROUTE ; Start 07/17/18 at 14:05; Stop 07/17/18 at 14:07; Status DC Neostigmine Methylsulfate (Bloxiverz) 10 mg STK-MED ONCE .ROUTE ; Start at 14:06; Stop 07/17/18 at 14:07; Status DC Docusate Sodium (Colace) 100 mg DAILY PO ; Start 07/18/18 at 09:00 Polyethylene Glycol (miraLAX PACKET) 17 gm DAILY PO ; Start 07/18/18 at 09:00 Oxycodone HCl (Roxicodone) 5 mg PRN Q3HRS PRN PO PAIN; Start 07/17/18 at 18:30 Morphine Sulfate (Morphine Sulfate) 2 mg PRN Q1HR PRN IV PAIN; Start 07/17/18 at 18:30; Stop 07/17/18 at 18:32; Status DC Fentanyl Citrate (Fentanyl 2ml Vial) 25 mcg PRN Q1HR PRN IV SEVERE PAIN, 2ND CHOICE; Start 07/17/18 at 18:30 Senna/Docusate Sodium (Senna Plus) 1 tab DAILY PO Last administered on at 09:16; Start 07/18/18 at 09:00 Polyethylene Glycol (miraLAX PACKET) 17 gm PRN DAILY PRN PO CONSTIPATION; Start 07/17/18 at 18:30 Ondansetron HCl (Zofran) 4 mg PRN Q4HRS PRN IV NAUSEA/VOMITING; Start 07/17/18 at 18:30 Warfarin Sodium (Coumadin) 7.5 mg 1X ONCE PO ; Start 07/17/18 at 16:00; Stop at 16:01; Status UNV Warfarin Sodium (Coumadin Per Pharmacy) 1 each PRN DAILY PRN MC SEE COMMENTS; Start 07/18/18 at 18:30 Magnesium Hydroxide (Milk Of Magnesia) 2,400 mg 1X PRN PRN PO CONSTIPATION; Start 07/18/18 at 06:00; Stop 07/19/18 at 05:59 Bisacodyl (Dulcolax Supp) 10 mg 1X PRN PRN IN CONSTIPATION; Start 07/18/18 at 16:00; Stop 07/19/18 at 15:59 Acetaminophen/ Hydrocodone Bitart (Lortab 7.5/325) 1 tab PRN Q4HRS PRN PO MODERATE PAIN Last administered on 07/18/18at 03:34; Start 07/17/18 at 18:30 Morphine Sulfate (Morphine Sulfate) 4 mg PRN Q2HR PRN IV PAIN; Start 07/17/18 at 18:30; Stop 07/17/18 at 18:32; Status DC Acetaminophen/ Hydrocodone Bitart (Lortab 7.5/325) 2 tab PRN Q4HRS PRN PO SEVERE PAIN; Start 07/17/18 at 18:30 Dextrose (Dextrose 50%-Water Syringe) 12.5 gm PRN Q15MIN PRN IV SEE COMMENTS; Start 07/17/18 at 18:30 Cefazolin Sodium/ Dextrose 50 ml @ 100 mls/hr Q6H IV Last administered on 07/18at 06:07; Start 07/17/18 at 18:30; Stop 07/18/18 at 06:59; Status DC Warfarin Sodium (Coumadin) 5 mg 1X WARF ONCE PO Last administered on at 19:51; Start 07/17/18 at 19:21; Stop 07/17/18 at 19:22; Status DC Active Scripts Active Reported Systane Liquid Gel Eye Drops (Propylene Glycol/Peg 400) 15 Ml Drp.lq.gel 15 Ml OP BID Not taken while in hosp. may resume at home as directed Multivitamins (Multivitamin) 1 Each Capsule 1 Each PO DAILY Last dose given: 8:30 a.m. Next dose due: 07-27-14 8:30 a.m. Tylenol (Acetaminophen) 325 Mg Tablet 1 Tab PO PRN PRN Last dose given: 11:30 a.m. Next dose due: 3:30 p.m. if needed for pain do not exceed 4,000 mg. tylenol in 24 hour period Glucosamine Chondroitin Cap (Glucosamine/Chondroitin Sulf A) 1 Each Capsule 1 Each PO BID Not taken while in hosp may resume at home as directed Citracal + D Er Tablet (Calcium Carb & Cit/Vitamin D3) 1 Each Tablet.er 1 Each PO BID Last dose given: 8:30 a.m. Next dose due: 07-27-14 8:30 a.m. Co Q-10 (Ubidecarenone) 200 Mg Capsule 200 Mg PO DAILY Last dose given: 8:30 a.m. Next dose due: 07-27-14 8:30 a.m. Omeprazole 20 Mg Tablet.dr 1 Tab PO DAILY Last dose given: 7:00 a.m. Next dose due: 07-27-14 7:00 a.m. K-Tab ER (Potassium Chloride) 20 Meq Tablet.er 20 Meq PO BID Last dose given: 8:30 a.m. Next dose due: 07-27-14 8:30 a.m. Altace (Ramipril) 10 Mg Capsule 1 Cap PO DAILY Last dose given: 07-25-14 5:00 p.m. Next dose due: this evening at 5:00 p.m. Flonase (Fluticasone Propionate) 16 Gm [place].susp 2 [place] NS BID Not taken while in hosp. May resume at home as directed Celexa (Citalopram Hydrobromide) 10 Mg Tablet 1 Tab PO HS Last dose given: 07-25-14 9:00 p.m. Next dose due: tonight Niaspan (Niacin) 1,000 Mg Tab.er.24h 1 Tab PO HS Last dose given: 07-25-14 9:00 p.m. Next dose due: tonight Lipitor (Atorvastatin Calcium) 80 Mg Tablet 1 Tab PO HS Last dose given: 07-25-14 9:00 p.m. Next dose due: tonight Coreg (Carvedilol) 25 Mg Tablet 1 Tab PO BID Last dose given: 8:30 a.m. Next dose due: tonalexx Vitals/I & O Vital Sign - Last 24 Hours 07/17/18 07/17/18 07/17/18 07/17/18 14:43 14:56 14:58 15:13 Temp 99.3 99.3 Pulse 68 64 61 Resp 20 17 19 B/P (MAP) 106/31 129/43 139/59 Pulse Ox 100 100 96 O2 Delivery Simple Mask Mask Simple Mask Nasal Cannula O2 Flow Rate 9 9 6 1 07/17/18 07/17/18 07/17/18 07/17/18 15:22 15:28 15:52 16:15 Temp 98 98.3 98.0 98.3 Pulse 60 68 Resp 12 18 16 B/P (MAP) 154/62 127/63 (84) Pulse Ox 96 100 99 O2 Delivery Nasal Cannula Nasal Cannula Room Air Room Air O2 Flow Rate 1.0 1 07/17/18 07/17/18 07/17/18 07/17/18 16:30 16:45 17:00 17:25 Pulse 59 62 73 60 Resp 16 16 16 B/P (MAP) 102/60 (74) 138/61 (86) 141/60 (87) 154/62 Pulse Ox 99 99 100 O2 Delivery Room Air Room Air Room Air 07/17/18 07/17/18 07/17/18 07/17/18 17:26 17:30 17:57 18:00 Pulse 79 71 Resp 16 16 B/P (MAP) 124/48 (73) 124/49 (74) Pulse Ox 98 98 O2 Delivery Room Air Room Air Room Air Room Air 07/17/18 07/17/18 07/17/18 07/17/18 19:00 20:00 21:05 23:00 Temp 98.5 98.8 98.5 98.8 Pulse 77 72 80 Resp 18 18 18 B/P (MAP) 120/60 (80) 120/68 (85) 138/55 (82) Pulse Ox 98 94 96 O2 Delivery Room Air Room Air Room Air Room Air 07/18/18 07/18/18 07/18/18 07/18/18 03:00 03:34 04:34 07:00 Temp 98.7 98.8 98.7 98.8 Pulse 85 71 Resp 18 18 B/P (MAP) 133/61 (85) 115/47 (69) Pulse Ox 97 96 96 97 O2 Delivery Room Air Room Air Room Air Room Air O2 Flow Rate 1.0 07/18/18 07/18/18 09:17 11:00 Temp 98.9 98.9 Pulse 85 66 Resp 18 B/P (MAP) 120/41 115/46 (69) Pulse Ox 98 O2 Delivery Room Air Intake and Output 07/17/18 07/17/18 07/18/18 15:01 23:01 07:01 Intake Total 1500 ml 250 ml Output Total 1400 ml 300 ml 500 ml Balance 100 ml -300 ml -250 ml JOYA LINDSAY MD Jul 18, 2018 11:46
--- NOTE | 2018-07-18 11:54 | NUR ---
SW following. Chart reviewed, discussed with RN. OT recommending skilled. Dr. Tubbs's not reported pt would like to go to [facility] for SNU. Await PT note to send referral. CHRIS will continue to follow.
[2018-07-18] MEDS: POLYVINYL ALCOHOL 1.4% OPHTH SOLUTION 15ML BOTTLE. OU SCH ×2 (12:39→21:08)
[2018-07-18] MEDS: FLUTICASONE 50MCG/NASAL SPRAY 16GM BOTTLE. NS SCH ×2 (12:39→21:08)
--- NOTE | 2018-07-18 14:06 | NUR ---
Pharmacy Warfarin Dosing Note S:Pharmacy consulted to assist with anticoagulation therapy started with target INR: 1.6 - 2.5 O:AYDIN BOSS is a 73 year old F with ORIF PERIPROSTHETIC FEMUR FX LABS: Last INR: 1.2 Last HGB: 8.0 Last HCT: 23.1 Last PLT: - Last dose of 5 mg given on 07/17/18 at 1951 Previous Regimen: Vitamin K given: Drug Interaction Changes: Ongoing Drug Interactions: A:INR of 1.2 is below desired range. Target range for this patient is: 1.6 - 2.5 P: Warfarin dose: 4 mg Today at 1600 Bridge Therapy: None Next INR due TOMORROW. Pharmacy anticoagulation service will continue to follow. YASH [facility], 07/18/18 [id number]
[2018-07-18 15:00] VITALS: BP 119/41
[2018-07-18] MEDS ORDERED: BISACODYL 10 MG SUPP.RECT. PR PRN (16:00)
[2018-07-18] MEDS ORDERED: WARFARIN 4 MG TABLET. PO ONE (16:00)
[2018-07-18 19:00] VITALS: BP 115/44
[2018-07-18] MEDS: ATORVASTATIN CALCIUM 40 MG TABLET. PO SCH (21:06)
[2018-07-18] MEDS: CITALOPRAM 10 MG TABLET. PO SCH (21:07)
[2018-07-18] MEDS: NIACIN ER 500 MG TABLET.ER PO SCH (21:07)
[2018-07-18 23:00] VITALS: BP 111/43
[2018-07-19 03:00] VITALS: BP 109/41
[2018-07-19 06:00] LABS: PROTHROMBIN TIME PATIENT 21.4 SEC (11.7-14.0)
[2018-07-19] MEDS: HYDROcodone/APAP 7.5/325MG 1 TAB TABLET PO PRN (06:59)
[2018-07-19] MEDS: PANTOPRAZOLE 40 MG TABLET.DR. PO SCH (06:59)
[2018-07-19 07:00] VITALS: BP 115/51
[2018-07-19] MEDS: LISINOPRIL 20 MG TABLET PO SCH (09:00)
[2018-07-19] MEDS: SENNOSIDES/DOCUSATE 8.6/50MG TABLET. PO SCH (09:00)
[2018-07-19] MEDS: POLYETHYLENE GLYCOL 3350 17 GM PACKET. PO SCH (10:30)
[2018-07-19] MEDS: DOCUSATE SODIUM 100 MG CAPSULE. PO SCH (10:31)
[2018-07-19] MEDS: CARVEDILOL 12.5 MG TABLET. PO SCH (10:31)
[2018-07-19] MEDS: FLUTICASONE 50MCG/NASAL SPRAY 16GM BOTTLE. NS SCH (10:31)
[2018-07-19] MEDS: MULTIVITAMIN with MINERAL TABLET. PO SCH (10:32)
[2018-07-19] MEDS: POTASSIUM CHLORIDE 20 MEQ TABLET.ER. PO SCH (10:32)
[2018-07-19] MEDS: CALCIUM CARB/VIT D3 500/200 TABLET. PO SCH (10:32)
[2018-07-19] MEDS: POLYVINYL ALCOHOL 1.4% OPHTH SOLUTION 15ML BOTTLE. OU SCH (10:33)
[2018-07-19] MEDS ORDERED: OXYC1TAB15 PO (10:53)
[2018-07-19] MEDS ORDERED: POLY17PO28 PO (10:53)
[2018-07-19] MEDS ORDERED: SENN-22 PO (10:54)
--- NOTE | 2018-07-19 10:54 | DISCH ---
DISCHARGE DISCHARGE INFORMATION: DISCHARGE DATE: Jul 19, 2018 FINAL DIAGNOSIS Problems Medical Problems: (1) Femur fracture Status: Acute (2) Fractured lateral malleolus Status: Acute CONDITION ON DISCHARGE: Stable CODE STATUS: Code Status: Full SENIOR CARE: SNF STAY <30 DAYS: Yes POST DISCHARGE ORDERS: ACTIVITY ORDERS: Activity as tolerated, Other, see below WEIGHT BEARING STATUS: Non weight bearing (right leg) BATHING ORDERS: Shower-keep dressing dry, No Tub Bath until see WOUND/INCISION CARE: Ice to area for comfort, Keep wound/cast CDI, Keep wound elevated, Do not change dressing TREATMENT/EQUIPMENT ORDERS: ADAPTIVE EQUIPMENT NEEDED: None Physical Therapy For: Evalulation/Treatment Occupational Therapy For: Evaluation/Treatment DISCHARGE MEDICATIONS: Home Meds Active Scripts Sennosides/Docusate Sodium (SENNA-TIME S TABLET) 1 Each Tablet, 1 TAB PO DAILY PRN for CONSTIPATION, #30 TAB Prov:JOYA LINDSAY MD 07/19/18 Oxycodone/Apap 5-325 (PERCOCET 5-325 MG TABLET ) 1 Each Tablet, 1 TAB PO PRN Q6HRS PRN for PAIN, #30 TAB 0 Refills Prov:JOYA LINDSAY MD 07/19/18 Polyethylene Glycol 3350 (POLYETHYLENE GLYCOL 3350) 17 Gm Powd.pack, 17 GM PO DAILY for prevent constipation, #30 PKT Prov:JOYA LINDSAY MD 07/19/18 Reported Medications Propylene Glycol/Peg 400 (SYSTANE LIQUID GEL EYE DROPS) 15 Ml Drp.lq.gel, 15 ML OP BID for DRY EYE Not taken while in hosp. may resume at home as directed 07/08/14 Multivitamin (MULTIVITAMINS) 1 Each Capsule, 1 EACH PO DAILY for vitamin supplement Last dose given: 8:30 a.m. Next dose due: 07-27-14 8:30 a.m. 07/08/14 Acetaminophen (TYLENOL) 325 Mg Tablet, 1 TAB PO PRN PRN for PAIN, #30 TAB Last dose given: 11:30 a.m. Next dose due: 3:30 p.m. if needed for pain do not exceed 4,000 mg. tylenol in 24 hour period 07/08/14 Glucosamine/Chondroitin Sulf A (GLUCOSAMINE CHONDROITIN CAP) 1 Each Capsule, 1 EACH PO BID for joint health Not taken while in hosp may resume at home as directed 07/08/14 Calcium Carb & Cit/Vitamin D3 (CITRACAL + D ER TABLET) 1 Each Tablet.er, 1 EACH PO BID for calcium vit. d supplement Last dose given: 8:30 a.m. Next dose due: 07-27-14 8:30 a.m. 07/08/14 Ubidecarenone (CO Q-10) 200 Mg Capsule, 200 MG PO DAILY for supplement Last dose given: 8:30 a.m. Next dose due: 07-27-14 8:30 a.m. 07/08/14 Omeprazole (OMEPRAZOLE) 20 Mg Tablet.dr, 1 TAB PO DAILY for gastric upset, #90 TAB 1 Refill Last dose given: 7:00 a.m. Next dose due: 07-27-14 7:00 a.m. 07/08/14 Potassium Chloride (K-Tab ER) 20 Meq Tablet.er, 20 MEQ PO BID for potassium supplement, TAB.SR Last dose given: 8:30 a.m. Next dose due: 07-27-14 8:30 a.m. 07/08/14 Ramipril (ALTACE) 10 Mg Capsule, 1 CAP PO DAILY for high blood pressure, #30 CAP 5 Refills Last dose given: 07-25-14 5:00 p.m. Next dose due: this evening at 5:00 p.m. 07/08/14 Fluticasone Propionate (FLONASE) 16 Gm [place].susp, 2 SPRAY NS BID for nasal allergies, #16 GM Not taken while in hosp. May resume at home as directed 07/08/14 Citalopram Hydrobromide (CELEXA) 10 Mg Tablet, 1 TAB PO HS for depression, #30 TAB 2 Refills Last dose given: 07-25-14 9:00 p.m. Next dose due: tonight 07/08/14 Niacin (NIASPAN) 1,000 Mg Tab.er.24h, 1 TAB PO HS for high cholesterol, #30 TAB 5 Refills Last dose given: 07-25-14 9:00 p.m. Next dose due: tonight 07/08/14 Atorvastatin Calcium (LIPITOR) 80 Mg Tablet, 1 TAB PO HS for high cholesterol, # 30 TAB 5 Refills Last dose given: 07-25-14 9:00 p.m. Next dose due: tonight 07/08/14 Carvedilol (COREG) 25 Mg Tablet, 1 TAB PO BID for high blood pressure, #60 TAB 5 Refills Last dose given: 8:30 a.m. Next dose due: patricio 07/08/14 JOYA LINDSAY MD Jul 19, 2018 10:54
--- NOTE | 2018-07-19 10:56 | PDOC3 ---
Discharge Summary Visit Information Date of Admission: Jul 16, 2018 Date of Discharge: Jul 19, 2018 Admitting Diagnosis: fall, hip fx Final Diagnosis Acute fracture of the distal femur just above the femoral component with fracture lines entering the lateral femoral condyle. surg 07/17 ORIF HX HYPERTENSION HYPERLIPIDEMIA HX GERD CHIARA depression, stable obesity, BMI 37 Problems Medical Problems: (1) Femur fracture Status: Acute (2) Fractured lateral malleolus Status: Acute Brief Hospital Course Allergies Allergies Coded Allergies Type Severity Reaction Last Updated Verified diphenhydramine Allergy Severe Hives 07/25/14 No mushroom Allergy Severe Anaphylaxis 07/16/18 Yes adhesive Allergy Intermediate Rash 07/25/14 Yes celecoxib Adverse Reaction Severe Palpitations 07/17/18 Yes morphine Adverse Reaction Severe violent vomitting 07/17/18 Yes latex Adverse Reaction Intermediate Itching 07/17/18 No Nitrate Analogues Adverse Reaction Mild 07/25/14 No Vital Signs Vital Signs Date Time Temp Pulse Resp B/P (MAP) Pulse Ox O2 Delivery O2 Flow Rate FiO2 07/19/18 10:31 86 115/51 07/19/18 08:00 Room Air 07/19/18 07:00 98.9 18 96 98.9 07/19/18 06:59 1.0 Lab Results Laboratory Tests Test 07/17/18 18:55 07/17/18 22:40 07/18/18 07:00 07/19/18 05:00 Prothrombin Time 15.1 SEC (11.7-14.0) 21.4 SEC (11.7-14.0) Prothromb Time International Ratio 1.2 (0.8-1.1) 1.9 (0.8-1.1) Urine Collection Type Unknown Urine Color Yellow Urine Clarity Clear Urine pH 6.0 Urine Specific Velma 1.015 Urine Protein Negative mg/dL (NEG-TRACE) Urine Glucose (UA) Negative mg/dL (NEG) Urine Ketones (Stick) Negative mg/dL (NEG) Urine Blood Negative (NEG) Urine Nitrite Negative (NEG) Urine Bilirubin Negative (NEG) Urine Urobilinogen Dipstick 0.2 mg/dL (0.2 mg/dL) Urine Leukocyte Esterase Negative (NEG) Urine RBC 1-2 /HPF (0-2) Urine WBC 1-4 /HPF (0-4) Urine Squamous Epithelial Cells Few /LPF Urine Bacteria 0 /HPF (0-FEW) Urine Mucus Slight /LPF Hemoglobin 8.0 g/dL (12.0-15.5) Hematocrit 23.1 % (36.0-47.0) Mean Corpuscular Hemoglobin Concent 34 g/dL (31-37) Laboratory Tests Test 07/19/18 05:00 Prothrombin Time 21.4 SEC (11.7-14.0) Prothromb Time International Ratio 1.9 (0.8-1.1) Brief Hospital Course Ms. Griffiths is a 73 old fell, fracture left hip, acute pain, could not walk , to surg 1.21, did well, pain improved Discharge Information Condition at Discharge: Improved Follow Up: Weeks Disposition/Orders: D/C to Another Facility ([facility], [place]) Scheduled Atorvastatin Calcium (Lipitor) 80 Mg Tablet, 1 TAB PO HS for high cholesterol, # 30 Ref 5 (Reported) Last dose given: 07-25-14 9:00 p.m. Next dose due: patricio Entered as Reported by: LEROY HEARD on 07/08/141423 Last Action: Converted on 07/16/182251 by TAMMIE RON MD Calcium Carb & Cit/Vitamin D3 (Citracal + D Er Tablet) 1 Each Tablet.er, 1 EACH PO BID for calcium vit. d supplement , (Reported) Last dose given: 8:30 a.m. Next dose due: 07-27-14 8:30 a.m. Entered as Reported by: LEROY HEARD on 07/08/141423 Last Action: Converted on 07/16/182251 by TAMMIE RON MD Carvedilol (Coreg) 25 Mg Tablet, 1 TAB PO BID for high blood pressure, #60 Ref 5 (Reported) Last dose given: 8:30 a.m. Next dose due: tonalexx Entered as Reported by: LEROY HEARD on 07/08/141423 Last Action: Converted on 07/16/182251 by TAMMIE RON MD Citalopram Hydrobromide (Celexa) 10 Mg Tablet, 1 TAB PO HS for depression, #30 Ref 2 (Reported) Last dose given: 07-25-14 9:00 p.m. Next dose due: patricio Entered as Reported by: LEROY HEARD on 07/08/141423 Last Action: Continued on 07/16/182251 by TAMMIE RON MD Fluticasone Propionate (Flonase) 16 Gm [place].susp, 2 SPRAY NS BID for nasal allergies, #16 (Reported) Not taken while in hosp. May resume at home as directed Entered as Reported by: LEROY HEARD on 07/08/141423 Last Action: Continued on 07/16/182251 by TAMMIE RON MD Glucosamine/Chondroitin Sulf A (Glucosamine Chondroitin Cap) 1 Each Capsule, 1 EACH PO BID for joint health, (Reported) Not taken while in hosp may resume at home as directed Entered as Reported by: LEROY HEARD on 07/08/141423 Last Action: Converted on 07/16/182251 by TAMMIE RON MD Multivitamin (Multivitamins) 1 Each Capsule, 1 EACH PO DAILY for vitamin supplement, (Reported) Last dose given: 8:30 a.m. Next dose due: 07-27-14 8:30 a.m. Entered as Reported by: LEROY HEARD on 07/08/141423 Last Action: Converted on 07/16/182251 by TAMMIE RON MD Niacin (Niaspan) 1,000 Mg Tab.er.24h, 1 TAB PO HS for high cholesterol, #30 Ref 5 (Reported) Last dose given: 07-25-14 9:00 p.m. Next dose due: patricio Entered as Reported by: LEROY HEARD on 07/08/141423 Last Action: Converted on 07/16/182251 by TAMMIE RON MD Omeprazole (Omeprazole) 20 Mg Tablet.dr, 1 TAB PO DAILY for gastric upset, #90 Ref 1 (Reported) Last dose given: 7:00 a.m. Next dose due: 07-27-14 7:00 a.m. Entered as Reported by: LEROY HEARD on 07/08/141423 Last Action: Converted on 07/16/182251 by TAMMIE RON MD Polyethylene Glycol 3350 (Polyethylene Glycol 3350) 17 Gm Powd.pack, 17 GM PO DAILY for prevent constipation, #30 Prescribed by: JOYA LINDSAY on 07/19/18 1053 Potassium Chloride (K-Tab ER) 20 Meq Tablet.er, 20 MEQ PO BID for potassium supplement, (Reported) Last dose given: 8:30 a.m. Next dose due: 07-27-14 8:30 a.m. Entered as Reported by: LEROY HEARD on 07/08/141423 Last Action: Converted on 07/16/182251 by TAMMIE RON MD Propylene Glycol/Peg 400 (Systane Liquid Gel Eye Drops) 15 Ml Drp.lq.gel, 15 ML OP BID for DRY EYE, (Reported) Not taken while in hosp. may resume at home as directed Entered as Reported by: LEROY HERAD on 07/08/141423 Last Action: Converted on 07/16/182251 by TAMMIE RON MD Ramipril (Altace) 10 Mg Capsule, 1 CAP PO DAILY for high blood pressure, #30 Ref 5 (Reported) Last dose given: 07-25-14 5:00 p.m. Next dose due: this evening at 5:00 p.m. Entered as Reported by: LEROY HEARD on 07/08/141423 Last Action: Converted on 07/16/182251 by TAMMIE RON MD Ubidecarenone (Co Q-10) 200 Mg Capsule, 200 MG PO DAILY for supplement, ( Reported) Last dose given: 8:30 a.m. Next dose due: 07-27-14 8:30 a.m. Entered as Reported by: LEROY HEARD on 07/08/141423 Scheduled PRN Acetaminophen (Tylenol) 325 Mg Tablet, 1 TAB PO PRN PRN for PAIN, #30 (Reported) Last dose given: 11:30 a.m. Next dose due: 3:30 p.m. if needed for pain do not exceed 4,000 mg. tylenol in 24 hour period Entered as Reported by: LEROY HEARD on 07/08/141423 Last Action: Continued on 07/16/182251 by TAMMIE RON MD Oxycodone/Apap 5-325 (Percocet 5-325 Mg Tablet ) 1 Each Tablet, 1 TAB PO PRN Q6HRS PRN for PAIN, #30 Ref 0 Prescribed by: JOYA LINDSAY on 07/19/18 1053 Sennosides/Docusate Sodium (Senna-Time S Tablet) 1 Each Tablet, 1 TAB PO DAILY PRN for CONSTIPATION, #30 Prescribed by: JOYA LINDSAY on 07/19/18 1054 Patient Instructions Patient Instructions > 30 minutes, including face to face JOYA LINDSAY MD Jul 19, 2018 10:56
[2018-07-19 11:00] VITALS: BP 124/46
--- NOTE | 2018-07-19 11:46 | NUR ---
CHRIS following. Discussed with RN. CHRIS met with pt to confirm insurance. [facility] questioning whether pt has Medicare and if it is pt's primary. Pt reported [employer] is her primary insurance. CHRIS contacted [facility], who advised their business office is showing Medicare as primary and that is the insurance they will bill the skilled to. CHRIS advised pt, pt in agreement. SW awaiting clinical acceptance from [facility]. Pt can discharge today upon acceptance. CHRIS will continue to follow.
--- NOTE | 2018-07-19 15:35 | NUR ---
This patient was assisted into the wheelchair provided by transportation to be taken to [place], all belongings were collected and returned to the patient. Pain medication given at discharge. All questions were answered for the patient at this time, Coumadin was addressed and will notify [place] of needing a dose today.
--- NOTE | 2018-07-19 15:45 | NUR ---
This nurse called report to MIGUEL Wren at [place], discussed Coumadin 3mg for today, daily until PT/INR repeated. Informed of follow up appointment, daily dressing change, pain management including pain medication given at 1530 before discharged. All questions were answered at this time, and a number was provided for call back with any additional questions.
== END 2018-07-19 15:30 | DRG 481 ==
LOC: ER 17:16 → 4 NORTH 18:32
PROVIDERS: ADMIT Family Medicine; ATTEND Family Medicine
PROC: 0QSB04Z Reposition Right Lower Femur with Internal Fixation Device, Open Approach (ICD-10-PCS; principal; 2018-07-17 12:00)
DX: S82.61XA Displaced fracture of lateral malleolus of right fibula, initial encounter for closed fracture (principal); M97.11XA Periprosthetic fracture around internal prosthetic right knee joint, initial encounter; K21.9 Gastro-esophageal reflux disease without esophagitis; I25.10 Atherosclerotic heart disease of native coronary artery without angina pectoris; I10 Essential (primary) hypertension; E78.00 Pure hypercholesterolemia, unspecified; G47.33 Obstructive sleep apnea (adult) (pediatric); E78.5 Hyperlipidemia, unspecified; S93.401A Sprain of unspecified ligament of right ankle, initial encounter; E66.9 Obesity, unspecified; F32.9 Major depressive disorder, single episode, unspecified; W18.39XA Other fall on same level, initial encounter; M77.9 Enthesopathy, unspecified; M19.90 Unspecified osteoarthritis, unspecified site; Z95.1 Presence of aortocoronary bypass graft; Z90.710 Acquired absence of both cervix and uterus; Z98.51 Tubal ligation status; Z82.49 Family history of ischemic heart disease and other diseases of the circulatory system; Z68.37 Body mass index [BMI] 37.0-37.9, adult; Z88.8 Allergy status to other drugs, medicaments and biological substances; Z88.6 Allergy status to analgesic agent; Z91.041 Radiographic dye allergy status; Z91.040 Latex allergy status; Y93.89 Activity, other specified; Y92.89 Other specified places as the place of occurrence of the external cause; Y99.8 Other external cause status
CPT/HCPCS: 36415; 73502; 73562; 73610; 76000; 80048; 80053; 81001; 85014; 85018; 85025; 85610; 87641; 96360; 96361; C1713; J0330; J0696; J1100; J1170; J2001; J2405; J2704; J2710; J3010; J3490; J7030; J7120; 97110; 97530; 97535; 99285-25